=== PATIENT | female | born 1940 | race Caucasian/White ===

== ENCOUNTER → 2016-07-25 | Outpatient (REF) | payer MEDICARE ==
[2016-07-25 12:53] LABS: BASO % 0.8 % (0.0-1.0); EOS # 0.2 K/mm3 (0.0-0.50); EOS % 3.6 % (0.0-3.0); LARGE UNSTAINED CELL # 0.1 K/mm3 (0.0-0.4); LARGE UNSTAINED CELL % 1.9 % (0.0-4.0); LYMPH # 1.6 K/mm3 (1.5-4.5); LYMPH % 28.1 % (24.0-44.0); MEAN CORPUSCULAR HEMOGLOBIN 34.1 pg (27.0-33.0); MEAN CORPUSCULAR HGB CONC 35.1 g/dl (32.0-36.5); MEAN CORPUSCULAR VOLUME 97.3 fl (80.0-96.0); MONO # 0.3 K/mm3 (0.0-0.8); MONO % 5.3 % (0.0-5.0); NEUTROPHILS # 3.5 K/mm3 (1.8-7.7); NEUTROPHILS % 60.3 % (36.0-66.0); PLATELET COUNT, AUTOMATED 183 k/mm3 (150-450); RED CELL DISTRIBUTION WIDTH 12.1 % (11.5-14.5); WHITE BLOOD COUNT 5.8 K/mm3 (4.0-10.0)
[2016-07-25 13:05] LABS: ALBUMIN/GLOBULIN RATIO 1.54 (1.00-1.93); BILIRUBIN,TOTAL 0.8 MG/DL (0.2-1.0); CALCIUM LEVEL 8.8 MG/DL (8.8-10.2); CREATININE FOR GFR 0.97 MG/DL (0.55-1.02); GLOMERULAR FILTRATION RATE 59.3 (>39); POTASSIUM SERUM 3.8 MEQ/L (3.5-5.1); TOTAL PROTEIN 6.6 GM/DL (6.4-8.2)
== END ==
LOC: M SFHCADAM 08:04
PROVIDERS: ATTEND Physician Assistant Medical
DX: E78.4 Other hyperlipidemia (principal); F34.1 Dysthymic disorder

== ENCOUNTER → 2016-08-29 | Outpatient (REF) | payer MEDICARE ==
[2016-08-29 20:07] LABS: BASO % 0.4 % (0.0-1.0); EOS # 0.2 K/mm3 (0.0-0.50); LARGE UNSTAINED CELL # 0.1 K/mm3 (0.0-0.4); LARGE UNSTAINED CELL % 1.5 % (0.0-4.0); LYMPH # 1.5 K/mm3 (1.5-4.5); LYMPH % 22.8 % (24.0-44.0); MEAN CORPUSCULAR HEMOGLOBIN 35.2 pg (27.0-33.0); MEAN CORPUSCULAR VOLUME 97.8 fl (80.0-96.0); MONO # 0.3 K/mm3 (0.0-0.8); MONO % 4.4 % (0.0-5.0); NEUTROPHILS # 4.3 K/mm3 (1.8-7.7); NEUTROPHILS % 67.9 % (36.0-66.0); PLATELET COUNT, AUTOMATED 200 k/mm3 (150-450); RED CELL DISTRIBUTION WIDTH 12.4 % (11.5-14.5); WHITE BLOOD COUNT 6.3 K/mm3 (4.0-10.0)
[2016-08-29 20:25] LABS: ALBUMIN 4.2 GM/DL (3.2-5.2); ALBUMIN/GLOBULIN RATIO 1.56 (1.00-1.93); BILIRUBIN,TOTAL 0.5 MG/DL (0.2-1.0); CALCIUM LEVEL 9.6 MG/DL (8.8-10.2); CREATININE FOR GFR 0.99 MG/DL (0.55-1.02); FREE T4 1.05 NG/DL (0.76-1.46); GLOMERULAR FILTRATION RATE 57.9 (>39); POTASSIUM SERUM 4.3 MEQ/L (3.5-5.1); TOTAL PROTEIN 6.9 GM/DL (6.4-8.2)
== END ==
LOC: M SFHCADAM 13:32
PROVIDERS: ATTEND Physician Assistant Medical
DX: R41.0 Disorientation, unspecified (principal)

== ENCOUNTER → 2016-09-02 | Outpatient (CLI) | payer MEDICARE ==
--- NOTE | 2016-09-02 07:44 | REP ---
Clinical: Delirium. Comparison: 01/19/2009. Findings: Age-related atrophy, periventricular leukomalacia and microvascular ischemic changes are appreciated. The ventricles and sulci are symmetric. Melendez-white differentiation is maintained. There is no evidence for acute intracranial hemorrhage, mass/mass effect, pathology or infarction. No extra-axial fluid collection. Calvarium is intact. Paranasal sinuses and mastoid air cells are clear. Impression: Age related atrophy and microvascular ischemic changes. No acute intracranial hemorrhage, infarction, or mass/mass effect. Signed by Sammy Potts MD 09/02/2016 07:35 A
[2016-09-02 08:08] LABS: MEAN CORPUSCULAR HEMOGLOBIN 34.6 pg (27.0-33.0); MEAN CORPUSCULAR HGB CONC 34.9 g/dl (32.0-36.5); MEAN CORPUSCULAR VOLUME 99.1 fl (80.0-96.0); RED CELL DISTRIBUTION WIDTH 12.4 % (11.5-14.5); WHITE BLOOD COUNT 5.7 K/mm3 (4.0-10.0)
[2016-09-02 08:22] LABS: ALKALINE PHOSPHATASE 71 U/L (45-117); ALT/SGPT 20 U/L (12-78); ANION GAP 7 MEQ/L (8-16); AST/SGOT 20 U/L (15-37); BILIRUBIN,TOTAL 0.6 MG/DL (0.2-1.0); BLOOD UREA NITROGEN 16 MG/DL (7-18); CARBON DIOXIDE LEVEL 28 MEQ/L (21-32); CHLORIDE LEVEL 110 MEQ/L (98-107); CREATININE FOR GFR 1.02 MG/DL (0.55-1.02); GLOMERULAR FILTRATION RATE 55.9 (>39); GLUCOSE, FASTING 91 MG/DL (83-110); POTASSIUM SERUM 4.2 MEQ/L (3.5-5.1); SODIUM LEVEL 145 MEQ/L (136-145); TOTAL PROTEIN 6.5 GM/DL (6.4-8.2)
== END ==
LOC: M LAB 06:50 → M RAD 06:50
PROVIDERS: ATTEND Physician Assistant Medical
DX: R41.0 Disorientation, unspecified (principal)

== ENCOUNTER → 2016-09-09 | Outpatient (REF) | payer MEDICARE | LOC: M SFHCADAM 14:06 | PROVIDERS: ATTEND Physician Assistant Medical | DX: R41.0 Disorientation, unspecified (principal) ==

== ENCOUNTER → 2016-09-16 | Outpatient (CLI) | payer MEDICARE ==
--- NOTE | 2016-09-16 09:48 | REP ---
Clinical: Hemochromatosis and right upper quadrant pain. Technique: Real time garcia scale ultrasound examination using curved array transducer. Findings: The liver is mildly increased in echogenicity suggesting fatty infiltration and/or hepatocellular disease without focal hepatic lesion identified. Limited evaluation the pancreas is unremarkable. The gallbladder demonstrates a 3.6 mm presumed polyp along the posterior wall without evidence for cholelithiasis, wall thickening or pericholecystic fluid. No biliary ductal dilatation is appreciated and the common bile duct measures 3.9 mm diameter. Right kidney demonstrates renovascular calcifications with increased central sinus fat and cortical thinning suggesting chronic medical renal disease. There is no hydronephrosis, obvious nephrolithiasis, cystic or mass lesion and the right kidney measures 10.1 x 5.4 x 4.1 cm. No ascites. Impression: 1. Mild fatty infiltration and/or hepatocellular disease to the liver without focal hepatic lesion. 2. 3.6 mm gallbladder polyp suggested. 3. Evidence to suggest chronic medical renal disease. Signed by Sammy Potts MD 09/16/2016 09:39 A
== END ==
LOC: M RAD 08:25
PROVIDERS: ATTEND Physician Assistant Medical
DX: R10.11 Right upper quadrant pain (principal); E83.119 Hemochromatosis, unspecified

== ENCOUNTER 2016-09-25 09:46 | Observation (INO) | payer MEDICARE ==
[~2016-09-25] VITALS: Ht 160 cm; Wt 78.9 kg
[2016-09-25] MEDS ORDERED: SERT50TA (10:02)
[2016-09-25] MEDS ORDERED: CONS10SO3 (10:02)
[2016-09-25 10:40] LABS: BASO % 0.9 % (0.0-1.0); EOS # 0.2 K/mm3 (0.0-0.50); EOS % 3.4 % (0.0-3.0); LARGE UNSTAINED CELL # 0.1 K/mm3 (0.0-0.4); LARGE UNSTAINED CELL % 2.3 % (0.0-4.0); LYMPH # 1.6 K/mm3 (1.5-4.5); LYMPH % 29.1 % (24.0-44.0); MEAN CORPUSCULAR HEMOGLOBIN 34.6 pg (27.0-33.0); MEAN CORPUSCULAR HGB CONC 34.7 g/dl (32.0-36.5); MONO # 0.3 K/mm3 (0.0-0.8); MONO % 5.4 % (0.0-5.0); NEUTROPHILS # 3.1 K/mm3 (1.8-7.7); NEUTROPHILS % 58.8 % (36.0-66.0); PLATELET COUNT, AUTOMATED 193 k/mm3 (150-450); RED CELL DISTRIBUTION WIDTH 12.6 % (11.5-14.5); WHITE BLOOD COUNT 5.2 K/mm3 (4.0-10.0)
[2016-09-25 10:46] LABS: VENOUS BASE EXCESS -4.1 (-2.0-2.0); VENOUS O2 SATURATION 87.1 % (60.0-80.0); VENOUS PARTIAL PRESSURE CO2 30.2 mmHg (38.0-50.0); VENOUS PARTIAL PRESSURE O2 48.8 mmHg (30.0-50.0); VENOUS STANDARD HCO3 20.8 MEQ/L; VENOUS TOTAL CO2 19.9 MEQ/L (24.0-28.0)
[2016-09-25 10:51] LABS: ALBUMIN 4.1 GM/DL (3.2-5.2); ALBUMIN/GLOBULIN RATIO 1.37 (1.00-1.93); ALKALINE PHOSPHATASE 79 U/L (45-117); ALT/SGPT 30 U/L (12-78); ANION GAP 6 MEQ/L (8-16); AST/SGOT 30 U/L (15-37); BILIRUBIN,DIRECT 0.1 MG/DL (0.0-0.2); BILIRUBIN,TOTAL 0.5 MG/DL (0.2-1.0); BLOOD UREA NITROGEN 10 MG/DL (7-18); CALCIUM LEVEL 9.3 MG/DL (8.8-10.2); CARBON DIOXIDE LEVEL 28 MEQ/L (21-32); CHLORIDE LEVEL 107 MEQ/L (98-107); CREATININE FOR GFR 0.94 MG/DL (0.55-1.02); GLOMERULAR FILTRATION RATE > 60.0 (>39); GLUCOSE, FASTING 98 MG/DL (83-110); POTASSIUM SERUM 3.6 MEQ/L (3.5-5.1); SODIUM LEVEL 141 MEQ/L (136-145); TOTAL PROTEIN 7.1 GM/DL (6.4-8.2)
[2016-09-25 11:04] LABS: INR 0.92
[2016-09-25] MEDS ORDERED: ONDANSETRON 4MG/2ML VIAL (J2405) IV PRN (16:45)
[2016-09-25] MEDS ORDERED: LACT10SO29 PO (16:59)
[2016-09-25] MEDS ORDERED: SERT50TA PO (16:59)
[2016-09-25] MEDS ORDERED: DRIS50002 PO (16:59)
[2016-09-25 17:45] VITALS: BP 136/65
[2016-09-25 18:05] LABS: MAGNESIUM LEVEL 2.4 MG/DL (1.8-2.4)
[2016-09-25] MEDS ORDERED: ACETAMINOPHEN TAB 650MG DOSE (2X325MG) PO PRN (21:30)
--- NOTE | 2016-09-25 21:45 | ECGEPIP ---
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
[2016-09-25 22:00] VITALS: BP 137/65
[2016-09-25] MEDS: HEPARIN SOD (PORCINE) 5000 UNITS/ML VIAL SC SCH (22:18)
[2016-09-26 02:14] LABS: METHADONE URINE NEGATIVE (NEGATIVE)
[2016-09-26] MEDS: HEPARIN SOD (PORCINE) 5000 UNITS/ML VIAL SC SCH ×2 (05:32→15:25)
[2016-09-26 06:00] VITALS: BP 128/70
[2016-09-26 06:47] LABS: EOS # 0.2 K/mm3 (0.0-0.50); LARGE UNSTAINED CELL # 0.1 K/mm3 (0.0-0.4); LYMPH # 1.9 K/mm3 (1.5-4.5); LYMPH % 35.1 % (24.0-44.0); MEAN CORPUSCULAR HEMOGLOBIN 34.5 pg (27.0-33.0); MEAN CORPUSCULAR HGB CONC 34.8 g/dl (32.0-36.5); MONO # 0.3 K/mm3 (0.0-0.8); MONO % 6.7 % (0.0-5.0); NEUTROPHILS # 2.6 K/mm3 (1.8-7.7); NEUTROPHILS % 51.2 % (36.0-66.0); PLATELET COUNT, AUTOMATED 157 k/mm3 (150-450); RED CELL DISTRIBUTION WIDTH 12.5 % (11.5-14.5); WHITE BLOOD COUNT 5.1 K/mm3 (4.0-10.0)
[2016-09-26 07:08] LABS: ANION GAP 5 MEQ/L (8-16); BLOOD UREA NITROGEN 9 MG/DL (7-18); CALCIUM LEVEL 8.6 MG/DL (8.8-10.2); CARBON DIOXIDE LEVEL 27 MEQ/L (21-32); CHLORIDE LEVEL 112 MEQ/L (98-107); CREATININE FOR GFR 0.85 MG/DL (0.55-1.02); GLOMERULAR FILTRATION RATE > 60.0 (>39); GLUCOSE, FASTING 93 MG/DL (83-110); POTASSIUM SERUM 3.9 MEQ/L (3.5-5.1); SODIUM LEVEL 144 MEQ/L (136-145)
[2016-09-26] MEDS ORDERED: SERTRALINE HCL 50 MG TAB PO SCH ×2 (09:00)
--- NOTE | 2016-09-26 09:35 | REP ---
CT HEAD WITHOUT CONTRAST: HISTORY: Memory loss. COMPARISON: 09/02/2016 Areas of decreased attenuation are present in the periventricular white matter. This represents small vessel ischemic disease. There is no intraparenchymal hemorrhage, mass, or midline shift. Calcifications are present in the basal ganglia and cerebellum. The ventricular system and cortical sulci are dilated consistent with mild volume loss. There is no extracerebral collection. The visualized sinuses are clear. IMPRESSION: 1. Small vessel ischemic disease. 2. Mild volume loss. Signed by Ángel Nicholas MD 09/26/2016 09:36 A
[2016-09-26] MEDS: LACTULOSE 20 GM/30 ML SYRUP UD PO SCH ×2 (10:32→15:25)
--- NOTE | 2016-09-26 10:57 | IPNPDOC ---
Subjective Date Seen The patient was seen on 09/26/16. Subjective Chief Complaint/HPI The patient is a 76-year-old female admitted with a reason for visit of AMS. Events since last encounter Pt this morning tells me that she is feeling really pretty good. States that she knows she is in the hospital bc she has been seeing things and people at her home. She states that she hasn't seen anyone since she has been here. She does however tell nursing that she believes her daughter is standing outside her door now and keeping her here. She has had progressively worsening symptoms of paranoia, delusions, and hallucinations over the last few weeks. I have seen her in the office for this where she had an elevated ammonia work up other evaluatios were normal. She was started on lactulose but was not compliant with this while her dgt was away traveling. Since her dgt has been back the pt has been more compliant but her symptoms have not improved. She has torn her house apart looking for things, then doesn't recall that she has caused the mess, and states that someone has been breaking into her home going through her belongings. She has been adament that she has seen a woman going thru her belongings. Her dgt has been through the home, she confirms that there is no sign of a break in, there is no money missing from accounts has been confirmed as well as the patient has been adament that this women (who she has never named) is stealing from her. General: Denies: Fatigue Constitutional: Denies: Chills, Fever ENT: Denies: Head Aches Pulmonary: Denies: Cough, Dyspnea Cardiovascular: Denies: Chest Pain, Palpitations Gastrointestinal: Denies: Diarrhea, Nausea, Vomiting Psych: Reports: Memory Issues, Other Psych (See above) Objective Physical Examination General Exam: Positive: Alert, No Acute Distress ENT Exam: Positive: Mucous membr. moist/pink Chest Exam: Positive: Clear to auscultation Heart Exam: Positive: Normal S1, Normal S2, Rate Normal Abdomen Exam: Positive: Normal bowel sounds, Soft, Negative: Tenderness Extremity Exam: Negative: Edema Psych Exam: Positive: Oriented x 3 (Pt recognizes me, she knows where she is, why, the year, who she is, she knows that today is her birthday. ) Assessment /Plan Problems (1) Paranoid behavior Status: Acute Problem Specific Plan: Consult Specialist, Monitor Clinically Problem Text: Pt appears to be medically stable, she has had a nl CT head, nl Ammonia, labs also otherwise benign. She continues to demonstrate paranoid behavior. She also has had hallucinations. I have spoken with Dr Montana from Psych who plans to see the pt. She is medically cleared fro transfer to [facility] if deemed appropriate by Psychiatry. (2) Hallucinations Status: Acute Problem Text: See above. (3) Altered mental status Status: Acute Response to Treatment: Stable Problem Text: See above. Plan/VTE VTE Prophylaxis Ordered?: Yes VS, I&O, 24H, Fishbone Vital Signs/I&O Vital Signs Date Time Temp Pulse Resp B/P Pulse Ox O2 Delivery O2 Flow Rate FiO2 09/26/16 06:00 98.4 59 18 128/70 94 Room Air I&O- Last 24 Hours up to 6 AM 09/26/16 06:00 Intake Total 960 ml Output Total 1100 ml Balance -140 ml Laboratory Data 24H LABS Laboratory Tests 2 09/25/16 23:54: Urine Amorphous Sediment , Urine Amphetamines Screen NEGATIVE, Urine Benzodiazepines Screen NEGATIVE, Urine Opiates Screen NEGATIVE, Urine Appearance CLEAR, Urine Color COLORLESS, Urine pH 7.0, Urine Specific Butler 1.003, Urine Protein NEGATIVE, Urine Glucose (UA) NEGATIVE, Urine Ketones NEGATIVE, Urine Urobilinogen 0.2, Urine Bilirubin NEGATIVE, Urine Leukocyte Esterase NEGATIVE, Urine Bacteria (Auto) NEGATIVE, Urine Barbiturates Screen NEGATIVE, Urine Blood 1+H, Urine Calcium Carbonate Cryst(Auto) , Urine Calcium Oxalate Cryst (Auto) , Urine Calcium Phosphate Mariya (Auto) , Urine Cannabinoids Screen NEGATIVE, Urine Cellular Casts , Urine Cocaine Metabolite Screen NEGATIVE , Urine Cystine Crystals , Urine Granular Casts (Auto) , Urine Hyaline Casts ( Auto) 0, Urine Leucine Crystals , Urine Methadone Screen NEGATIVE, Urine Mucus ( Auto) , Urine Nitrite NEGATIVE, Urine Oval Fat Bodies (Auto) , Urine Phencyclidine Screen NEGATIVE, Urine RBC (Auto) 8H, Urine Renal Epithelial Cells , Urine Sperm (Auto) , Urine Squamous Epithelial Cells 1, Urine Transitional Epithelial Cells , Urine Trichomonas (Auto) , Urine Triple Phosphate Cryst (Auto) , Urine Tyrosine Crystals , Urine Uric Acid Crystals ( Auto) , Urine WBC (Auto) 1, Urine Waxy Casts (Auto) , Urine Yeast-Like Cells ( Auto) 09/26/16 06:18: Ammonia < 10, Anion Gap 5L, White Blood Count 5.1, Red Blood Count 4.38, Hemoglobin 15.1, Hematocrit 43.3, Mean Corpuscular Volume 99.0H, Mean Corpuscular Hemoglobin 34.5H, Mean Corpuscular Hemoglobin Concent 34.8, Red Cell Distribution Width 12.5, Platelet Count 157, Neutrophils (%) (Auto) 51.2, Lymphocytes (%) (Auto) 35.1, Monocytes (%) (Auto) 6.7H, Eosinophils (%) (Auto) 4.0H, Basophils (%) (Auto) 1.0, Neutrophils # (Auto) 2.6, Lymphocytes # (Auto) 1.9, Monocytes # (Auto) 0.3, Eosinophils # (Auto) 0.2, Basophils # (Auto) 0.0, Blood Urea Nitrogen 9, Creatinine 0.85, Sodium Level 144, Potassium Level 3.9, Chloride Level 112H, Carbon Dioxide Level 27, Calcium Level 8.6L, Glomerular Filtration Rate > 60.0, Large Unclassified Cells # 0.1, Large Unclassified Cells % 2.0 CBC/BMP Laboratory Tests 09/26/16 06:18 Calcium Level 8.6 L, Red Blood Count 4.38, Mean Corpuscular Volume 99.0 H, Mean Corpuscular Hemoglobin 34.5 H, Mean Corpuscular Hemoglobin Concent 34.8, Red Cell Distribution Width 12.5, Neutrophils (%) (Auto) 51.2, Lymphocytes (%) (Auto ) 35.1, Monocytes (%) (Auto) 6.7 H, Eosinophils (%) (Auto) 4.0 H, Basophils (%) (Auto) 1.0, Neutrophils # (Auto) 2.6, Lymphocytes # (Auto) 1.9, Monocytes # ( Auto) 0.3, Eosinophils # (Auto) 0.2, Basophils # (Auto) 0.0 Microbiology Microbiology 09/25/16 Urine Culture, Received Pending LINDA AZEVEDO PA-C Sep 26, 2016 10:57
--- NOTE | 2016-09-26 10:57 | HPE ---
DATE OF ADMISSION: 09/25/2016 PRIMARY CARE PROVIDER: Dr. Washington Sawyer, [facility]. CHIEF COMPLAINT: Confusion, hallucinations. HISTORY OF PRESENT ILLNESS: 75-year-old female with a history of hemachromatosis, depression, vitamin D deficiency on chronic Lactulose due to chronically elevated ammonia levels, who presented to the emergency room brought in by her daughter with complaints of hallucinations and paranoia. According to the patient, her daughter was concerned about her due to hallucinations. The patient was in her usual state of health until she had two concussions in 2016 due to head trauma. Since then, the patient has been much more forgetful with recent memory loss, difficulty with recent memory. She often forgets where she leaves her car keys and has been slightly paranoid thinking that someone is coming in at night and stealing her things, like her silverware. "They said I am hallucinating." According to the patient, she thought that someone was coming in and stealing things from her, for example her silverware that is usually in the aligning checker the dining room. After a few days, she would find it in the usual place. The patient sometimes hears noises and rattling down the stairs prompting her to come down the stairs and investigate. She feels that at times she sees shadows and noises. The patient also complains that sometimes she finds clothes in a different drawer than where she normally puts it and at times she leaves her brush on top of the dresser and would not find it there but it would turn up in a day or two. Due to these changes, the daughter has been increasingly concerned. She was brought into the emergency room for further evaluation. Ammonia level and arterial blood gas were within normal limits. CBC and metabolic panel and CT of the head done on 08/23/2016, were unremarkable. Hospitalist service was called for evaluation and overnight admission to rule out other metabolic issues. PAST MEDICAL HISTORY: 1. Concussion times two. 2. Per the patient, hemachromatosis. 3. Depression. 4. Vitamin D deficiency. 5. Hyperlipidemia. 6. Hemorrhoids. 7. Osteoarthritis of the hips and knees. 8. Depression. 9. Anxiety. 10. Insomnia. 11. Abnormal EKG with left axis deviation. 12. MGUS, follows with hematology. ALLERGIES: No known drug allergies. SURGICAL HISTORY: 1. Hysterectomy in 1975. 2. Bladder suspension in 1975. 3. Colonoscopy 15 years ago. 4. Lens implants. 5. Bilateral cataract surgery in 2010. HOME MEDICATIONS: - Lactulose 10 grams per 15 mL three times a day - sertraline 50 mg daily - vitamin D 50,000 units weekly FAMILY HISTORY: Father at age 70 with coronary artery disease and myocardial infarction. Mother at age 74 with brain cancer. Siblings - - Sister had hypertension. Brother of brain aneurysm at age 73, another brother in his 40s. SOCIAL HISTORY: Lives at home with a 95-year-old friend. Daughter, Edwina Mendez, healthcare proxy, phone number [phone]. REVIEW OF SYSTEMS: 12-point system negative aside from positive findings in history of present illness. PHYSICAL EXAMINATION: Blood pressure 131/60, temperature 97.2, pulse 50, respiratory rate 16, 96% oxygen saturation. GENERAL: Awake, alert, and oriented to person, place and time. She is able to state Crystalsa Fabiola Macario, date of 1940. She stated that she is at [facility] in [place], [place]. Able to state that it is 09/25/2016. She has no focal abnormalities neurologically. Motor function is 5/5. Gait was not tested. No facial asymmetry. Tongue is midline. No sensory disturbance. Pupils are equal, round, and reactive. No dysmetria on finger to nose testing. No pronator drift. Tongue is midline. Speech is fluent. LUNGS: Clear to auscultation. No wheezes, rales or rhonchi. HEART: S1, S2. Sinus rhythm. ABDOMEN: Soft, nontender, nondistended. EXTREMITIES: No cyanosis or clubbing. No pitting edema. LABORATORY DATA: White count 5.3, hemoglobin 16, hematocrit 46, platelet count 193. Sodium 141, potassium 3.6, chloride 107, bicarbonate 28, BUN 10, creatinine 0.94, glucose 98. Ammonia level of 18. Arterial blood gas: Venous gas 7.4, CO2 of 30. UA and urine culture and sensitivity pending. IMAGING STUDIES: CT of the head pending. CT of the head on 08/23/2016 showed no acute intracranial hemorrhage, infarct, mass or mass effect. Age related atrophy, microvascular ischemic changes. ASSESSMENT AND PLAN: This is a 75-year-old female with a history of hemachromatosis, vitamin D deficiency, monoclonal gammopathy of unknown significance, vitamin D deficiency, depression, who was brought in by her daughter due to worsening memory loss and paranoia with hallucinations. The patient will be admitted for observation. Assigned to Dr. Washington Sawyer, [facility]. CURRENT ISSUES: 1. Altered mental status. Current metabolic workup is negative. We will check UA and urine culture and sensitivity to rule out infection. Obtain CT of the head without contrast. Defer to Dr. Sawyer for psychiatric referral if negative medical workup, may have underlying dementia, may benefit from neuropsychiatric testing as an outpatient. 2. Hemachromatosis. Ammonia level is stable. May resume home dose of Lactulose. 3. Vitamin D deficiency. Outpatient followup with continued vitamin D. 4. Depression. Continue sertraline. DISPOSITION: Per Dr. Sawyer. [facility]
[2016-09-26 14:00] VITALS: BP 139/81
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
== END 2016-09-26 20:07 ==
LOC: M ED 10:48 → M ED INP 16:33 → M MSPAV 17:13
PROVIDERS: ADMIT General Practice; ATTEND Family Medicine
DX: R41.82 Altered mental status, unspecified (principal); F22 Delusional disorders; F29 Unspecified psychosis not due to a substance or known physiological condition; E83.119 Hemochromatosis, unspecified; E55.9 Vitamin D deficiency, unspecified; F32.9 Major depressive disorder, single episode, unspecified; F43.10 Post-traumatic stress disorder, unspecified; F41.9 Anxiety disorder, unspecified; E78.4 Other hyperlipidemia; I10 Essential (primary) hypertension; Z87.820 Personal history of traumatic brain injury

== ENCOUNTER 2016-09-26 20:10 | Inpatient (IN) | payer MEDICARE ==
[~2016-09-26] VITALS: Ht 160 cm; Wt 79.1 kg
[~2016-09-26 20:10] MED LIST: CONS10SO3; DRIS50002 PO; LACT10SO29 PO; SERT50TA; SERT50TA PO
[2016-09-26 20:35] VITALS: BP 146/73
[2016-09-26] MEDS ORDERED: LORazepam 0.5 MG TAB PO PRN (21:30)
[2016-09-26] MEDS ORDERED: MAALOX 30 ML SUSP *UDC PO PRN (21:30)
[2016-09-26] MEDS ORDERED: traZODone 50 MG TAB PO PRN (21:30)
[2016-09-26] MEDS ORDERED: ACETAMINOPHEN TAB 650MG DOSE (2X325MG) PO PRN (21:30)
[2016-09-26] MEDS ORDERED: MOM 30ML SUSPENSION UDC PO PRN (21:30)
[2016-09-27 06:13] VITALS: BP 138/65
[2016-09-27] MEDS ORDERED: SERTRALINE HCL 50 MG TAB PO SCH (09:00)
--- NOTE | 2016-09-27 10:11 | HPEPDOC ---
Medical History and Physical Date of Admission Sep 26, 2016 at 20:10 History and Physical PCP: Mona HIGHTOWER ATTENDING: Dr. Sebastián Knox HPI: 75yoF admitted to [facility] for unspecified psychosis, being medically examined today. No acute medical complaints today. Denies any fevers, chills, weakness, fatigue, [place], CP, SOB, cough, palpitations, abdominal pain, N/V/D or changes in bowel or bladder habits. 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 Brother brain aneurysm, another brother in his 40s. Children: Alive, well Unexpected deaths due to medical reasons: None. ROS: As noted in HPI, otherwise 11pt ROS of systems reviewed and unremarkable. PE: GEN: 76yoF, appears stated age. Well-nourished, well developed. No acute distress. Alert and oriented x 3. Pleasant, interactive. HEENT: Normocephalic, atraumatic. Pupils are equal, round, and reactive to light. Extraocular movements are intact. No nystagmus appreciated. Sclera are nonicteric. Conjunctiva without injection. Nose midline. Nasal turbinates without bogginess. EACs both patent BL. TMs both visualized and garcia with good cone of light, no bulging or erythema. No facial asymmetry. Moist mucous membranes. Dentition fair. Pharynx pink and moist, no cobblestoning. Neck supple , trachea midline. No lymphadenopathy or thyromegaly appreciated. CHEST: Regular rate and rhythm, +S1, +S2 LUNGS: Clear to auscultation bilaterally. No wheezes, rales, or rhonchi. Breathing appears symmetric and easy. Patient is speaking in full sentences. No accessory muscle use. ABD: Round, soft, non-tender, non-distended. +Bowel sounds throughout. No rebound or guarding. No costovertebral angle tenderness. EXT: Pulses 2+ bilaterally dorsalis pedis and radial. No lower extremity edema appreciated. SKIN: [place], dry, warm. Capillary refill <2sec. No rashes. NEURO: Alert and oriented x 3. Cranial nerves III-XII are intact. No focal deficits appreciated. EK09/25/16 SINUS BRADYCARDIA WITH OCCASIONAL SUPRAVENTRICULAR PREMATURE COMPLEXES INFERIOR MYOCARDIAL INFARCTION, PROBABLY OLD DECREASED RATE 09/20/15. UC neg 09/25/16 CT head 09/26/16 1. Small vessel ischemic disease. 2. Mild volume loss. Liver U/S 09/16/16 1. Mild fatty infiltration and/or hepatocellular disease to the liver without focal hepatic lesion. 2. 3.6 mm gallbladder polyp suggested. 3. Evidence to suggest chronic medical renal disease A&P: 75yoF admitted to [facility] for unspecified psychosis 1. Psych. Plan per Psychiatry. EKG on file. Add RPR, Vitamin B12, folate. 2. Possible underlying dementia. Plan for outpatient neuropsychiatric evaluation. 3. Borderline EKG. No cardiac signs or symptoms appreciated on exam, follow with PCP. 4. Follow up with PCP on discharge. 5. Vitamin D deficiency. Continue supplement. 6. History of hemachromatosis. Continue lactulose 15 mL 3 times a day. Ammonia level less than 10 09/26/16. Liver ultrasound completed 09/16/16. Pt was seen by PCP 09/09/16. Per note, has outpt f/u 10/[address] Johnson. Will confirm appt. 7. Staff member present throughout exam, Smita Dunn RN. Vital Signs Vital Signs Date Time Temp Pulse Resp B/P Pulse Ox O2 Delivery O2 Flow Rate FiO2 09/27/16 06:13 96.6 48 18 138/65 Laboratory Data Labs 24H Item Value Date Time White Blood Count 5.1 K/mm3 09/26/16617 Red Blood Count 4.38 M/mm3 09/26/16617 Hemoglobin 15.1 g/dl 09/26/16617 Hematocrit 43.3 % 09/26/16617 Mean Corpuscular Volume 99.0 fl H 09/26/16617 Mean Corpuscular Hemoglobin 34.5 pg H 4/6/17 0618 Mean Corpuscular Hemoglobin Concent 34.8 g/dl 09/26/1618 Red Cell Distribution Width 12.5 % 09/26/16 0618 Platelet Count 157 k/mm3 09/26/16 0618 Sodium Level 144 MEQ/L 09/26/1618 Potassium Level 3.9 MEQ/L 09/26/16 0618 Chloride Level 112 MEQ/L H 09/26/16 0618 Carbon Dioxide Level 27 MEQ/L 09/26/16 0618 Anion Gap 5 MEQ/L L 09/26/16 0618 Blood Urea Nitrogen 9 MG/DL 09/26/16 0618 Creatinine 0.85 MG/DL 09/26/16617 Glomerular Filtration Rate > 60.0 09/26/1618 Fasting Glucose 93 MG/DL 09/26/16 0618 Calcium Level 8.6 MG/DL L 09/26/1618 Thyroid Stimulating Hormone (TSH) 3.120 uIU/ML 09/25/16 1006 Ammonia < 10 uMOL/L 09/26/16 0618 Home Medications Scheduled Lactulose (Lactulose) 10 Gm/15 Ml Magdalena 15 ML PO TID Sertraline Hcl (Sertraline HCl) 50 Mg Tab 50 MG PO DAILY Vitamin D (Drisdol) 50,000 Unit Cap 50,000 UNIT PO QWEEK USUALLY TAKES MID WEEK WHEN SHE REMEMBERS. IS ALL OUT. Allergies Coded Allergies: No Known Allergies (Unverified , 09/25/16) Ruby Chahal Sep 27, 2016 10:11
[2016-09-27] MEDS: LACTULOSE 20 GM/30 ML SYRUP UD PO SCH ×3 (10:48→21:41)
[2016-09-27 11:40] LABS: FOLATE 11.2 NG/ML (>5.4); VITAMIN B12 LEVEL 327 PG/ML (247-911)
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
[2016-09-27 18:00] VITALS: BP 103/60
[2016-09-28 06:54] VITALS: BP 120/72
[2016-09-28] MEDS: SERTRALINE 100 MG TAB PO SCH (08:55)
[2016-09-28] MEDS: LACTULOSE 20 GM/30 ML SYRUP UD PO SCH ×3 (08:55→21:36)
[2016-09-28 18:00] VITALS: BP 100/58
--- NOTE | 2016-09-29 04:13 | IPN ---
DATE OF SERVICE: 09/28/2016 The patient today states "I'm doing good." She says she slept good. She has no complaints. I am not eliciting any mood symptoms. MENTAL STATUS EXAMINATION: She is alert. She is pleasant and cooperative, verbally spontaneous. Eye contact is good. There is no formal thought disorder noted. She says her mood is good. Her affect is full range and appropriate. She is not psychotic, suicidal, homicidal. Concentration is fair. Memory is intact. Insight and judgment is fair. DIAGNOSIS: Major depressive disorder, recurrent, severe, without psychotic symptoms. TREATMENT PLAN: At this point, the patient seems to be doing better. It seems that her mood seems to be stabilizing. We will continue to monitor her for continued stabilization of her mood and to titrate her medications as indicated.
[2016-09-29 06:29] VITALS: BP 148/66
[2016-09-29] MEDS: LACTULOSE 20 GM/30 ML SYRUP UD PO SCH ×3 (08:31→21:00)
[2016-09-29] MEDS: SERTRALINE 100 MG TAB PO SCH (08:31)
[2016-09-29 18:00] VITALS: BP 132/78
--- NOTE | 2016-09-30 06:22 | IPN ---
DATE: 09/29/2016 The patient today says, "I am doing good". She says she slept good. She has no complaints. ENTAL STATUS EXAMINATION: The patient is alert and oriented times three. She is pleasant and cooperative , verbally spontaneous. Eye contact is good. There is no formal thought disorder noted. She says her mood is good. Her affect is full range and appropriate. She is not psychotic, suicidal, homicidal. Concentration is fair. Memory is intact. Insight and judgment is fair. DIAGNOSIS: Major depressive disorder, recurrent, severe, without psychotic symptoms. TREATMENT PLAN: At this point, we will further observe and evaluate the patient for continued elevation and stabilization of her mood and continued resolution of suicidal ideations. LUCINDA
[2016-09-30 06:51] VITALS: BP 124/72
[2016-09-30] MEDS: LACTULOSE 20 GM/30 ML SYRUP UD PO SCH ×3 (08:11→21:35)
[2016-09-30] MEDS: SERTRALINE 100 MG TAB PO SCH (08:11)
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
[2016-09-30 18:00] VITALS: BP 127/73
[2016-10-01 06:39] VITALS: BP 122/83
[2016-10-01] MEDS ORDERED: SERT50TA PO (08:07)
[2016-10-01] MEDS: LACTULOSE 20 GM/30 ML SYRUP UD PO SCH (08:12)
[2016-10-01] MEDS: SERTRALINE 100 MG TAB PO SCH (08:12)
[2016-10-01] MEDS ORDERED: TRAZ50TA4 PO (09:08)
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
== END 2016-10-01 09:50 | disposition home or self-care (01) | DRG 885 ==
LOC: M PSY 20:10
PROVIDERS: ADMIT Psychiatry & Neurology Child & Adolescent Psychiatry; ATTEND Psychiatry & Neurology Child & Adolescent Psychiatry
DX: F33.1 Major depressive disorder, recurrent, moderate (principal); E83.119 Hemochromatosis, unspecified; E78.5 Hyperlipidemia, unspecified; F03.90 Unspecified dementia, unspecified severity, without behavioral disturbance, psychotic disturbance, mood disturbance, and anxiety; K64.8 Other hemorrhoids; D47.2 Monoclonal gammopathy; M17.0 Bilateral primary osteoarthritis of knee; M16.0 Bilateral primary osteoarthritis of hip; Z79.899 Other long term (current) drug therapy; Z62.810 Personal history of physical and sexual abuse in childhood

== ENCOUNTER → 2016-11-07 | Outpatient (REF) | payer MEDICARE ==
[~2016-11-07] MED LIST changes: +TRAZ50TA4 PO
[2016-11-07 14:11] LABS: BASO % 0.6 % (0.0-1.0); EOS # 0.2 K/mm3 (0.0-0.50); EOS % 2.5 % (0.0-3.0); LARGE UNSTAINED CELL # 0.1 K/mm3 (0.0-0.4); LARGE UNSTAINED CELL % 1.6 % (0.0-4.0); LYMPH # 1.3 K/mm3 (1.5-4.5); LYMPH % 19.5 % (24.0-44.0); MEAN CORPUSCULAR HEMOGLOBIN 35.3 pg (27.0-33.0); MEAN CORPUSCULAR HGB CONC 34.5 g/dl (32.0-36.5); MEAN CORPUSCULAR VOLUME 102.2 fl (80.0-96.0); MONO # 0.3 K/mm3 (0.0-0.8); MONO % 4.2 % (0.0-5.0); NEUTROPHILS # 4.9 K/mm3 (1.8-7.7); NEUTROPHILS % 71.6 % (36.0-66.0); PLATELET COUNT, AUTOMATED 188 k/mm3 (150-450); RED CELL DISTRIBUTION WIDTH 12.1 % (11.5-14.5); WHITE BLOOD COUNT 6.8 K/mm3 (4.0-10.0)
[2016-11-07 14:42] LABS: ALBUMIN/GLOBULIN RATIO 1.33 (1.00-1.93); ALKALINE PHOSPHATASE 71 U/L (45-117); ALT/SGPT 29 U/L (12-78); ANION GAP 4 MEQ/L (8-16); AST/SGOT 25 U/L (15-37); BILIRUBIN,TOTAL 0.6 MG/DL (0.2-1.0); BLOOD UREA NITROGEN 14 MG/DL (7-18); CALCIUM LEVEL 9.4 MG/DL (8.8-10.2); CARBON DIOXIDE LEVEL 32 MEQ/L (21-32); CHLORIDE LEVEL 108 MEQ/L (98-107); CREATININE FOR GFR 0.91 MG/DL (0.55-1.02); GLOMERULAR FILTRATION RATE > 60.0 (>39); GLUCOSE, FASTING 104 MG/DL (83-110); POTASSIUM SERUM 4.9 MEQ/L (3.5-5.1); SODIUM LEVEL 144 MEQ/L (136-145)
== END ==
LOC: M SFHCADAM 11:16
PROVIDERS: ATTEND Physician Assistant Medical
DX: F34.1 Dysthymic disorder (principal); E83.118 Other hemochromatosis; F22 Delusional disorders

== ENCOUNTER → 2016-11-13 | Outpatient (CLI) | payer MEDICARE ==
--- NOTE | 2016-11-13 09:04 | REP ---
Clinical: Right upper quadrant pain. Technique: Real time garcia scale ultrasound examination using curved array transducer. Findings: Liver and pancreas are normal in contour, size, echogenicity and overall appearance without focal hepatic or pancreatic lesions identified. Very minimal fatty infiltration to the liver cannot be excluded. The gallbladder demonstrates a presumed 4 mm polyp without further evidence for gallstones, wall thickening or pericholecystic fluid. Right upper quadrant pain was elicited with transducer pressure and is nonspecific. There is no evidence for biliary ductal dilatation and the common bile duct measures 4 mm diameter. Right kidney measures 8.2 x 4.5 x 3.7 cm with suggestions for chronic medical renal disease and no evidence for hydronephrosis. No ascites. Impression: 1. Right upper quadrant tenderness was elicited during examination. 2. Otherwise relatively normal examination with subtle findings as described above including benign gallbladder polyp, evidence for chronic medical renal disease, and mild fatty infiltration to the liver. Signed by Sammy Potts MD 11/13/2016 08:56 A
== END ==
LOC: M RAD 08:17
PROVIDERS: ATTEND Physician Assistant Medical
DX: K76.9 Liver disease, unspecified (principal)

== ENCOUNTER 2016-11-23 20:39 | Emergency (ER) | payer MEDICARE ==
[~2016-11-23] VITALS: Ht 160 cm; Wt 74.0 kg
[2016-11-23] MEDS ORDERED: MECL-68 PO (20:55)
[2016-11-23] MEDS ORDERED: QUET1TAB7 PO (20:55)
[2016-11-23 21:34] LABS: BASO # 0.1 K/mm3 (0.0-0.2); BASO % 0.8 % (0.0-1.0); EOS # 0.3 K/mm3 (0.0-0.50); EOS % 3.6 % (0.0-3.0); LARGE UNSTAINED CELL # 0.1 K/mm3 (0.0-0.4); LARGE UNSTAINED CELL % 1.3 % (0.0-4.0); LYMPH % 26.4 % (24.0-44.0); MEAN CORPUSCULAR HGB CONC 35.5 g/dl (32.0-36.5); MEAN CORPUSCULAR VOLUME 98.6 fl (80.0-96.0); MONO # 0.4 K/mm3 (0.0-0.8); NEUTROPHILS # 4.4 K/mm3 (1.8-7.7); NEUTROPHILS % 61.9 % (36.0-66.0); PLATELET COUNT, AUTOMATED 152 k/mm3 (150-450); RED CELL DISTRIBUTION WIDTH 12.5 % (11.5-14.5); WHITE BLOOD COUNT 7.1 K/mm3 (4.0-10.0)
[2016-11-23 21:51] LABS: ALBUMIN 3.9 GM/DL (3.2-5.2); ALBUMIN/GLOBULIN RATIO 1.56 (1.00-1.93); BILIRUBIN,DIRECT 0.2 MG/DL (0.0-0.2); BILIRUBIN,TOTAL 0.6 MG/DL (0.2-1.0); CALCIUM LEVEL 8.9 MG/DL (8.8-10.2); CREATININE FOR GFR 1.2 MG/DL (0.55-1.02); GLOMERULAR FILTRATION RATE 46.3 (>39); POTASSIUM SERUM 3.7 MEQ/L (3.5-5.1); TOTAL PROTEIN 6.4 GM/DL (6.4-8.2)
[2016-11-23 22:18] LABS: THYROXINE (T4) 7.6 UG/DL (4.5-12.0)
[2016-11-23 22:37] VITALS: BP 111/58
== END 2016-11-23 22:56 | disposition home or self-care (01) ==
LOC: M ED 21:29
DX: K74.60 Unspecified cirrhosis of liver (principal); E83.119 Hemochromatosis, unspecified

== ENCOUNTER → 2016-11-25 | Outpatient (REF) | payer MEDICARE ==
[~2016-11-25] MED LIST changes: +MECL-68 PO; +QUET1TAB7 PO
[2016-11-25 14:25] LABS: FERRITIN 55 NG/ML (8-252); PERCENT SATURATION 28.5 % (13.2-37.4); TOTAL IRON BINDING CAPACITY 284 UG/DL (250-450); TOTAL PROTEIN 6.6 GM/DL (6.4-8.2)
[2016-11-26 13:39] LABS: ALBUMIN 4.47 GM/DL (3.29-5.55); ALBUMIN % 67.7 % (55.8-66.1); GAMMA GLOBULIN % 9.4 % (11.1-18.8)
== END ==
LOC: M LAB REF 13:14
PROVIDERS: ATTEND Internal Medicine Medical Oncology
DX: E83.119 Hemochromatosis, unspecified (principal)

== ENCOUNTER → 2016-12-04 | Outpatient (REF) | payer MEDICARE | LOC: M LAB REF 12:43 | PROVIDERS: ATTEND Internal Medicine Medical Oncology | DX: E83.119 Hemochromatosis, unspecified (principal) ==

== ENCOUNTER 2017-01-01 20:41 | Emergency (ER) | payer MEDICARE ==
[~2017-01-01] VITALS: Ht 160 cm; Wt 77.2 kg
[~2017-01-01 20:41] MED LIST changes: +TRAZ50TA11 PO; -TRAZ50TA4 PO
[2017-01-01] MEDS ORDERED: OLAN5TAB PO (20:58)
[2017-01-01] MEDS ORDERED: DONETAB6 PO (20:58)
[2017-01-01] MEDS ORDERED: NORCO, ANEXSIA 5/325MG TABLET (HYDROcodone/ACETAMINOPHEN) PO ONE (22:00)
[2017-01-01] MEDS ORDERED: NAPR500T PO (23:21)
[2017-01-02 00:04] VITALS: BP 138/70
--- NOTE | 2017-01-02 04:58 | REP ---
Clinical: Trauma. Technique: AP, lateral, bilateral oblique and sunrise views. Findings: The osseous structures and joint spaces are intact and normal. There is no evidence for acute fracture or dislocation. No joint effusion is appreciated. Surrounding soft tissues are unremarkable. No subcutaneous emphysema or radiodense foreign body. Impression: No acute fracture or dislocation appreciated. Signed by Sammy Potts MD 01/02/2017 04:50 A
--- NOTE | 2017-01-02 05:01 | REP ---
Clinical: Trauma . Technique: AP, lateral, bilateral oblique, and coned-down views. Findings: No acute fracture. Age related osteopenia and moderate to advanced multilevel degenerative changes are appreciated. Findings are most pronounced at the L4-5 level where endplate sclerosis, disc space narrowing and hypertrophic facet changes are appreciated. Advanced chronic changes and L5-S1 include spondylolysis, endplate sclerosis, disc space narrowing, anterior osteophyte formation, and grade 1 anterolisthesis. Impression: 1. Advanced chronic spondylolysis with spondylolisthesis at L5-S1. 2. Advanced degenerative disc disease at the L4-5 level. 3. Moderate degenerative changes noted throughout the remainder of the visualized thoracolumbar spine. 4. No acute fracture / compression injury. Signed by Sammy Potts MD 01/02/2017 04:52 A
--- NOTE | 2017-01-02 05:02 | REP ---
Clinical: Trauma. Technique: Caudal angled, cephalic angled, and lateral views of the sacrum and coccyx. Findings: Sacrum is intact. No definite acute coccyx fracture although subtle angulation is noted but appears nonacute. Impression: No acute sacrococcygeal fracture or dislocation appreciated. Signed by Sammy Potts MD 01/02/2017 04:53 A
--- NOTE | 2017-01-02 05:03 | REP ---
Clinical: Trauma. Technique: Single frontal view of the pelvis with neutral and frog lateral views of the left hip. Findings: Age-related changes are appreciated throughout the pelvis and appears symmetric. Left hip demonstrates mild degenerative changes including increase sclerosis to the acetabular roof with minimal joint space narrowing. Impression: Mild age-related degenerative changes. No acute fracture dislocation. Signed by Sammy Potts MD 01/02/2017 04:55 A
--- NOTE | 2017-01-02 05:05 | REP ---
Clinical: Trauma. Fall. Technique: Internal rotation, external rotation, and Y view of the left shoulder. Findings: Chronic degenerative changes include cortical irregularity and spurring at the acromioclavicular joint as well as nonspecific age-related changes to the glenohumeral joint. No acute fracture dislocation. Subacromial space is relatively normal. Impression: Mild arthritic degenerative changes. Signed by Sammy Potts MD 01/02/2017 04:56 A
== END 2017-01-02 00:09 | disposition home or self-care (01) ==
LOC: EDBD 20:41 → M ED 20:41
DX: S40.012A Contusion of left shoulder, initial encounter (principal); W01.198A Fall on same level from slipping, tripping and stumbling with subsequent striking against other object, initial encounter; Y92.099 Unspecified place in other non-institutional residence as the place of occurrence of the external cause; Y93.01 Activity, walking, marching and hiking; Y99.9 Unspecified external cause status

== ENCOUNTER 2017-01-11 20:41 | Inpatient (IN) | payer MEDICARE, MEDICAID ==
[~2017-01-11] VITALS: Ht 162.6 cm; Wt 78.5 kg
[~2017-01-11 20:41] MED LIST changes: +DONETAB6 PO; +NAPR500T PO; +OLAN5TAB PO
[2017-01-11 21:55] LABS: BASO % 0.9 % (0.0-1.0); EOS # 0.3 K/mm3 (0.0-0.50); LARGE UNSTAINED CELL # 0.2 K/mm3 (0.0-0.4); LARGE UNSTAINED CELL % 2.6 % (0.0-4.0); LYMPH # 1.8 K/mm3 (1.5-4.5); LYMPH % 30.2 % (24.0-44.0); MEAN CORPUSCULAR HEMOGLOBIN 35.2 pg (27.0-33.0); MEAN CORPUSCULAR HGB CONC 36.1 g/dl (32.0-36.5); MEAN CORPUSCULAR VOLUME 97.6 fl (80.0-96.0); MONO # 0.4 K/mm3 (0.0-0.8); MONO % 6.5 % (0.0-5.0); NEUTROPHILS # 3.2 K/mm3 (1.8-7.7); NEUTROPHILS % 54.8 % (36.0-66.0); PLATELET COUNT, AUTOMATED 166 k/mm3 (150-450); RED CELL DISTRIBUTION WIDTH 12.3 % (11.5-14.5); WHITE BLOOD COUNT 5.9 K/mm3 (4.0-10.0)
--- NOTE | 2017-01-11 22:30 | REPUSA ---
CT of the head Clinical history: syncope. Technique: Multiple axial CT images obtained with 5 mm slice thickness were obtained through the head without administration of contrast. The ventricles and sulci are symmetric bilaterally. There are periventricular areas of low attenuatio n throughout the deep white matter. There is no evidence of acute hemorrhage or infarct. There is no midline shift, mass effect, or extra-axial fluid collection. The osseous structures are unremarkable. The visualized paranasal sinuses and mastoid air cells are clear. Impression: No acute intracranial hemorrhage or infarct. Mild chronic small vessel ischemic disease.
--- NOTE | 2017-01-11 22:40 | REPUSA ---
CT of the lumbar spine without contrast Clinical history: Pain. Technique: Multiple axial CT images were obtained through the lumbar spine without administration of contrast. Coronal and sagittal 3-D reconstructed images were also obtained. Findings: The lumbar vertebral bodies are in satisfactory positioning. There is a 5 mm anterior spondylolisthes is of L5 upon S1. Bilateral pars defects are seen at L5. No fractures or dislocations are demonstrate d. Intervertebral disc spaces are moderately narrowed at L4/L5 and L5/S1. There is also minimal degen erative disease at T11/T12. There is no evidence of facet subluxation. The neural foramen appear andrea sly patent. The spinal canal demonstrates normal caliber and contour without evidence of spinal steno sis. The surrounding soft tissues are within normal limits. Impression: 1. No acute fracture or traumatic injury. 2. Multilevel degenerative disc disease, most severe at L4/L5 and L5/S1. 3. Grade 1 anterior spondylolisthesis at L5 upon S1, caused by bilateral pars defects.
[2017-01-11 23:14] LABS: ANION GAP 5 MEQ/L (8-16); BLOOD UREA NITROGEN 21 MG/DL (7-18); CARBON DIOXIDE LEVEL 24 MEQ/L (21-32); CHLORIDE LEVEL 115 MEQ/L (98-107); CREATININE FOR GFR 0.65 MG/DL (0.55-1.02); GLOMERULAR FILTRATION RATE > 60.0 (>39); GLUCOSE, FASTING 88 MG/DL (83-110); POTASSIUM SERUM 3.9 MEQ/L (3.5-5.1); SODIUM LEVEL 144 MEQ/L (136-145)
[2017-01-11 23:36] LABS: INR 0.96
[2017-01-12] VITALS (9 sets, daily range): BP systolic 112–174; BP diastolic 64–89
[2017-01-12] MEDS ORDERED: ONDANSETRON 4MG/2ML VIAL (J2405) IV PRN (00:30)
[2017-01-12] MEDS ORDERED: SERO50TA PO ×2 (00:44→00:47)
[2017-01-12] MEDS ORDERED: SERO1TAB PO (00:44)
[2017-01-12] MEDS ORDERED: NAPR500T3 PO (00:44)
[2017-01-12] MEDS ORDERED: SERT-138 PO (00:44)
[2017-01-12] MEDS ORDERED: MECLIZINE 25 MG TABLET PO PRN (00:45)
[2017-01-12] MEDS ORDERED: NAPROXEN 250 MG TAB PO PRN (00:45)
--- NOTE | 2017-01-12 01:53 | HPE ---
DATE OF ADMISSION: 01/12/2017 PRIMARY CARE PROVIDER: Selene Magana PA-C. CHIEF COMPLAINT: Fall with loss of consciousness. HISTORY OF PRESENT ILLNESS: This is a 76-year-old female patient with underlying medical history of dyslipidemia, hemachromatosis, hemorrhoids, patient sees Dr. Myles for hematology, arthritis of hip and knees, depression, anxiety, insomnia with history of psychosis, MGUS, and also cirrhosis, as well as vertigo and dementia. Patient has been, after being evaluated by primary care provider, in the process of getting placed at a nursing facility due to worsening dementia. As per friends, patient has been inconsistent with taking care of her medication. As per patient, earlier 01/11 afternoon patient had an episode where patient fell in her bedroom with loss of consciousness, unknown why she fell. Patient has been falling more often recently, about once a week. Baseline walking with a cane or getting used to using a cane. Does report hitting on her head. Denies any loss of consciousness, incontinence, tongue biting. Does feel lightheaded and a bit confused. Patient does have history of psychosis and dementia. Patient is a very poor historian. In the emergency room, patient denies any head pain, shoulder pain, hip pain. Denies any significant injury. Patient denies any fevers, chills, chest pain, pressure or discomfort, nausea, vomiting. Reported normal oral intake. Patient lives at home with a partner who is 90 years old, who she has been taking care of. Patient denies any chest pain, palpitations. Recently, a month ago, patient has been started on olanzapine for psychosis. ALLERGIES: No known drug allergies. PAST MEDICAL HISTORY: 1. Dyslipidemia. 2. Cirrhosis. 3. Hemachromatosis. 4. Hemorrhoids. 5. Arthritis of hip and knees. 6. Depression. 7. Anxiety. 8. Insomnia. 9. Psychosis. 10. MGUS. 11. Dementia. PAST SURGICAL HISTORY: 1. Tonsillectomy. 2. Adenoidectomy. 3. Hysterectomy. 4. Bladder suspension. 5. Colonoscopy. 6. Cataract surgery. FAMILY HISTORY: Father with myocardial infarction ([place]) age 70. Mother with brain cancer age 74. SOCIAL HISTORY: Patient denies smoking. Patient has not drank any alcoholic beverages recently. REVIEW OF SYSTEMS: Reported lightheaded, vertigo. Denies any chest pain, pressure or discomfort. Reported falling more frequently. Poor memory, does not remember what is going on. All other review of systems has been negative. Limited history secondary to patient's mental status. HOME MEDICATIONS: - meclizine 25 mg by mouth as needed - naproxen 500 mg by mouth twice a day as needed - olanzapine 5 mg by mouth nightly - Seroquel 50 mg by mouth daily in the morning and 100 mg by mouth at night - Zoloft 100 mg by mouth daily at night - vitamin D 50,000 units weekly - donepezil 5 mg by mouth daily PHYSICAL EXAMINATION: VITAL SIGNS: Temperature 97.4, pulse 55, respirations 20, blood pressure 145/75, pulse oximetry 96% on room air. GENERAL: Patient alert, oriented times three, comfortable, follows commands, in no acute distress. HEENT: Normocephalic, atraumatic. PULMONARY: Bilaterally clear to auscultation. CARDIAC: Regular S1, S2. ABDOMEN: Soft, nontender. Positive bowel sounds. EXTREMITIES: No edema bilateral lower extremities. NEUROLOGICAL: Cranial nerves II-XII grossly intact. No focal deficits. Able to move all four extremities. Bilateral upper and lower extremities 5/5 strength. EKG sinus bradycardia at 51, no ST segment changes. LABORATORY: WBC 5.9, hemoglobin and hematocrit 14.7/40.8, platelets 166. Chemistry: Sodium 144, potassium 3.9, chloride 115, bicarbonate 24, BUN 21, creatinine 0.6. Ammonia 34, troponin negative. TSH 1.94. Alcohol negative. INR 0.96. CT scan of the head within normal limits. ASSESSMENT AND PLAN: This is a 76-year-old female patient with underlying medical history of vertigo, dyslipidemia, hemachromatosis, hemorrhoids, arthritis of the hip and knees, anxiety, depression, insomnia, MGUS, cirrhosis, dementia, admitted status post fall with loss of consciousness. 1. Status post fall with syncope, loss of consciousness. Patient has significant history of psychosis and dementia, has been worked up for frequent falls. Will hold olanzapine given olanzapine is the most recent medication. Followup orthostatics. Cardiac enzymes. Ammonia level slightly elevated which could contribute. Will place the patient on lactulose and recheck ammonia level in the morning. Echocardiogram. Telemetry. Cardiac enzymes. Vitamin D. CT scan is appreciated. CT of the lumbar spine appreciated. Physical therapy. Patient and family services (PFS) consulted for possible placement. 2. Dyslipidemia. Patient does not tolerate statin. Diet controlled. 3. Hemachromatosis. Need outpatient followup. Followup hemoglobin and hematocrit. Patient sees Dr. Myles. 4. Osteoarthritis of hip and knee. Physical therapy. Continue current medication. 5. Depression, anxiety, insomnia with psychosis. Continue current medication. Olanzapine has been discontinued given that it is the most recent medication that could potentially contribute . Will further assess psychosis. Continue current medication and further followup as outpatient. 6. MGUS. Continue outpatient hematological followup. Will monitor patient's kidney function and calcium while inpatient. 7. Cirrhosis with minimal elevation of ammonia. Trial of lactulose. Followup ammonia in the morning. Potential lab deviation. Followup liver function tests. 8. Dementia. Supportive care. PFS consulted for possible placement. Continue Aricept. 9. Deep venous thrombosis (DVT) prophylaxis. Heparin subcutaneously. DISPOSITION: Pending clinical improvement, PFS, further workup for syncope and fall.
[2017-01-12 05:04] LABS: MEAN CORPUSCULAR HEMOGLOBIN 35.7 pg (27.0-33.0); MEAN CORPUSCULAR VOLUME 99.2 fl (80.0-96.0); RED CELL DISTRIBUTION WIDTH 12.8 % (11.5-14.5); WHITE BLOOD COUNT 5.8 K/mm3 (4.0-10.0)
[2017-01-12 05:24] LABS: ALBUMIN 3.3 GM/DL (3.2-5.2); ALBUMIN/GLOBULIN RATIO 1.57 (1.00-1.93); ALKALINE PHOSPHATASE 65 U/L (45-117); ALT/SGPT 31 U/L (12-78); ANION GAP 6 MEQ/L (8-16); AST/SGOT 27 U/L (15-37); BILIRUBIN,TOTAL 0.4 MG/DL (0.2-1.0); BLOOD UREA NITROGEN 20 MG/DL (7-18); CARBON DIOXIDE LEVEL 28 MEQ/L (21-32); CHLORIDE LEVEL 109 MEQ/L (98-107); CREATININE FOR GFR 0.93 MG/DL (0.55-1.02); GLOMERULAR FILTRATION RATE > 60.0 (>39); GLUCOSE, FASTING 109 MG/DL (83-110); MAGNESIUM LEVEL 2.3 MG/DL (1.8-2.4); POTASSIUM SERUM 3.2 MEQ/L (3.5-5.1); SODIUM LEVEL 143 MEQ/L (136-145); TOTAL PROTEIN 5.4 GM/DL (6.4-8.2)
[2017-01-12] MEDS ORDERED: POTASSIUM CHLORIDE 10 MEQ SR TABLET PO ONE (06:00)
[2017-01-12] MEDS: HEPARIN SOD (PORCINE) 5000 UNITS/ML VIAL SC SCH ×2 (08:51→20:02)
[2017-01-12] MEDS: LACTULOSE 20 GM/30 ML SYRUP UD PO SCH ×2 (08:51→20:01)
[2017-01-12] MEDS: SERTRALINE 100 MG TAB PO SCH (08:51)
[2017-01-12] MEDS: SENOKOT S TAB PO SCH ×2 (08:51→20:01)
[2017-01-12] MEDS: QUEtiapine FUMARATE 50 MG TAB PO SCH ×2 (08:51→20:02)
[2017-01-12] MEDS ORDERED: SLF 3 ML SYR IV PRN (11:15)
--- NOTE | 2017-01-12 12:48 | REP ---
PORTABLE CHEST: AP portable view of the chest is performed and compared to prior study of 09/20/2015. There is no evidence of acute infiltrate. Mild basilar interstitial prominence is stable. The heart does not appear to be significantly enlarged. There is mild calcification and tortuosity of the thoracic aorta. The mediastinal silhouette is unchanged. IMPRESSION: No evidence of acute pulmonary disease. Signed by Miah Melendez MD 01/12/2017 07:29 P
[2017-01-12] MEDS: SLF 3 ML SYR IV SCH ×2 (13:48→20:03)
[2017-01-12] MEDS: ACETAMINOPHEN TAB 650MG DOSE (2X325MG) PO PRN ×2 (14:35→20:01)
[2017-01-12] MEDS: DONEPEZIL 5 MG TAB PO SCH (20:02)
[2017-01-12] MEDS: QUEtiapine FUMARATE 100 MG TAB PO SCH (20:12)
[2017-01-12] MEDS ORDERED: QUEtiapine FUMARATE 100 MG TAB PO SCH (21:00)
--- NOTE | 2017-01-12 21:34 | IPN ---
DATE: 01/12/2017 Crystal is admitted by the hospitalist group overnight after falling. She fell in the bedroom, unknown why she fell, but falling frequently. No loss of consciousness. Her past history shows dementia with some psychotic features, is followed by neurology group. She had Magnetic Resonance Imaging (MRI) of the brain done in December 2016, which showed some minor vascular abnormalities. No mass. She has hemochromatosis, is followed annually by hematology/oncology. She only had one phlebotomy and that was over five years ago in 2010, has not needed one since, was just seen this year by Dr. Johnson and iron studies are normal. History of depression, sleep disturbance and she has monoclonal gammopathy of unknown significance with a very low amount of protein on her M-spike and that also requires no intervention. Her health has been declining. Her daughter has been pursuing placement. The patient can not really give me any history. PHYSICAL EXAMINATION: 120/71, pulse 52, respiratory 18, 94% oxygen saturation. She is alert and conversant. Answers are vague and lack content. No jugular venous distension (JVD). Neck supple. Lungs clear. Heart without murmur. Abdomen soft, nontender, no masses. No peripheral edema. Normal strength in the arms and legs. Reviewed her office records. She does not have a MOLST form. She has a healthcare proxy, name is Edwina Hinson, is her healthcare proxy. She has had some inpatient mental unit admissions this year as well. HOME MEDICATIONS: - Zoloft 100 mg daily - Drisdol 50,000 units weekly - Seroquel 50 mg tablets one tablet in the morning, two tablets at bedtime - Aricept 5 mg daily - Zyprexa 5 mg twice a day - meclizine 25 mg every 8 hours as needed for vertigo IMPRESSION: 1. Frequent falls, not sure if she is having syncope or not. Keep her on telemetry for the next 24 hours. 2. Various behavioral disturbances. Continue current medications DISPOSITION: The patient needs placement. Patient Family Services (PFS) will need to get involved tomorrow. She is not currently on her Zyprexa while here. I am not restarting it. She is on a lot of psychiatric medications and perhaps this hospitalization will be a chance to lessen her load of medications. Should behavior deteriorate, this could be restarted.
[2017-01-13 04:00] VITALS: BP 125/69
[2017-01-13] MEDS: SLF 3 ML SYR IV SCH ×3 (04:49→20:37)
[2017-01-13 06:03] LABS: MEAN CORPUSCULAR HEMOGLOBIN 35.7 pg (27.0-33.0); MEAN CORPUSCULAR HGB CONC 35.8 g/dl (32.0-36.5); MEAN CORPUSCULAR VOLUME 99.7 fl (80.0-96.0); RED CELL DISTRIBUTION WIDTH 12.8 % (11.5-14.5); WHITE BLOOD COUNT 5.8 K/mm3 (4.0-10.0)
[2017-01-13 08:00] VITALS: BP 140/66
--- NOTE | 2017-01-13 08:02 | ECGEPIP ---
Stationary ECG Study [facility] - ED Test Date: 2017-01-11 Pat Name: LACI ESPARZA Department: Room: [place] [address] Gender: F Audio Installer: heladio : [id number] Requested By: LAZARO Merino Order Number: [id number] Reading MD: Abelino Sue Measurements Intervals [place] Rate: 51 P: 32 FL: 170 QRS: -11 QRSD: 80 T: 26 QT: 481 QTc: 443 Interpretive Statements SINUS BRADYCARDIA Electronically Signed On 01-13-2017 8:01:44 EDT by Abelino Sue
[2017-01-13 08:07] LABS: ALBUMIN 3.7 GM/DL (3.2-5.2); ALBUMIN/GLOBULIN RATIO 1.68 (1.00-1.93); ALKALINE PHOSPHATASE 68 U/L (45-117); ALT/SGPT 36 U/L (12-78); ANION GAP 6 MEQ/L (8-16); AST/SGOT 30 U/L (15-37); BILIRUBIN,TOTAL 0.7 MG/DL (0.2-1.0); BLOOD UREA NITROGEN 16 MG/DL (7-18); CALCIUM LEVEL 8.3 MG/DL (8.8-10.2); CARBON DIOXIDE LEVEL 26 MEQ/L (21-32); CHLORIDE LEVEL 109 MEQ/L (98-107); CREATININE FOR GFR 0.77 MG/DL (0.55-1.02); GLOMERULAR FILTRATION RATE > 60.0 (>39); GLUCOSE, FASTING 86 MG/DL (83-110); POTASSIUM SERUM 3.8 MEQ/L (3.5-5.1); SODIUM LEVEL 141 MEQ/L (136-145); TOTAL PROTEIN 5.9 GM/DL (6.4-8.2)
--- NOTE | 2017-01-13 08:16 | IPNPDOC ---
Subjective Date Seen The patient was seen on 01/13/17. Subjective Chief Complaint/HPI The patient is a 76-year-old female admitted with a reason for visit of Fall & Syncope. Events since last encounter Pt states she feels better. Denies CP, SOB, Abd pain. Constitutional: Denies: Chills, Fever Pulmonary: Denies: Dyspnea Cardiovascular: Denies: Chest Pain, Palpitations Gastrointestinal: Denies: Nausea, Vomiting, Abdominal Pain Objective Physical Examination General Exam: Positive: Alert, No Acute Distress Neck Exam: Positive: Supple, Negative: JVD Chest Exam: Positive: Clear to auscultation Heart Exam: Positive: Rate Normal, Regular Rhythm Telemetry: Positive: Other Telemetry: (3 seconds SVT) Abdomen Exam: Positive: Normal bowel sounds, Soft, Negative: Tenderness Extremity Exam: Negative: Edema Psych Exam: Positive: Mental status NL (pt knows where she is and the year) Assessment /Plan Problems (1) Fall Status: Acute Problem Specific Plan: Monitor Clinically Problem Text: 01/13 - On Telemetry. No obvious etiology/ ?sycope. Pt did have 3 seconds of SVT on telemetry. PFS have been consulted. Pt will need placement. (2) Behavior disturbance Status: Chronic Problem Specific Plan: Monitor Clinically Problem Text: On Zoloft, Aricept, Seroquel. Zyprexa has been d/c'ed. (3) Dementia Status: Chronic Problem Specific Plan: Monitor Clinically Problem Text: On Zoloft, Aricept, Seroquel. Zyprexa has been d/c'ed. (4) Hemochromatosis Status: Chronic Problem Specific Plan: Monitor Clinically Problem Text: Follows with HemeOnc as outpt. Plan/VTE VTE Prophylaxis Ordered?: Yes VS, I&O, 24H, Fishbone Vital Signs/I&O Vital Signs Date Time Temp Pulse Resp B/P (MAP) Pulse Ox O2 Delivery O2 Flow Rate FiO2 01/13/17 04:00 97.2 52 18 125/69 (87) 97 Room Air I&O- Last 24 Hours up to 6 AM 01/13/17 06:00 Intake Total 1560 ml Output Total 1300 ml Balance 260 ml Laboratory Data 24H LABS Laboratory Tests 2 01/13/17 07:07: CBC/BMP Laboratory Tests 01/13/17 05:46 Red Blood Count 4.25, Mean Corpuscular Volume 99.7 H, Mean Corpuscular Hemoglobin 35.7 H, Mean Corpuscular Hemoglobin Concent 35.8, Red Cell Distribution Width 12.8 Microbiology Microbiology 01/11/17 Urine Culture - Final, Complete Attending Note Attending Note Patient in no distress 3 sec burst of PSVT overnight. Not likely a cause for her falls unless sustained. Will monitor for another 24 hours. So far no behavioral problems observed as a consequence of discontinuation of Zyprexa. Link Phan Jan 13, 2017 08:16 Ashwin Pastrana MD Jan 13, 2017 11:18
[2017-01-13] MEDS: SENOKOT S TAB PO SCH ×2 (09:00→20:37)
[2017-01-13] MEDS: HEPARIN SOD (PORCINE) 5000 UNITS/ML VIAL SC SCH ×2 (10:33→20:37)
[2017-01-13] MEDS: LACTULOSE 20 GM/30 ML SYRUP UD PO SCH ×2 (10:36→20:36)
[2017-01-13] MEDS: ACETAMINOPHEN TAB 650MG DOSE (2X325MG) PO PRN ×3 (10:43→20:38)
[2017-01-13] MEDS: SERTRALINE 100 MG TAB PO SCH (10:43)
[2017-01-13 12:00] VITALS: BP 160/94
[2017-01-13 16:00] VITALS: BP 145/91
[2017-01-13] MEDS: DONEPEZIL 5 MG TAB PO SCH (20:36)
[2017-01-13] MEDS: QUEtiapine FUMARATE 100 MG TAB PO SCH (20:37)
--- NOTE | 2017-01-13 20:54 | ECHO ---
DATE OF PROCEDURE: 01/13/2017 REFERRING PHYSICIAN: Dr. Heavenly Rader INDICATION: Syncope. HEIGHT: 64 inches. WEIGHT: 179 pounds. 2D MEASUREMENTS: Aortic root: 3.1 cm Left atrium: 3.6 cm Ventricular septum: 1.20 cm Posterior wall: 1.23 cm Left ventricle diastole: 4.4 cm Aortic annulus: 1.9 cm DOPPLER MEASUREMENTS: Aortic valve velocity: 156 cm/s LVOT velocity: 103 cm/s LVOT VTI: 25.6 cm Mitral E velocity: 62.2 cm/s Mitral A velocity: 83.4 cm/s Mitral deceleration time: 236 ms Pulmonary acceleration time: 173 ms MITRAL ANNULAR TISSUE DOPPLER: E-prime septal: 5.5 cm/s E-prime lateral: 6.7 cm/s DESCRIPTION: Rhythm was sinus. Image quality was fair. No pericardial effusion. This is a 2D, M-mode, color flow Doppler and pulse wave Doppler examination and included mitral annular tissue Doppler. CONCLUSIONS: 1. Very mild concentric left ventricle hypertrophy. Normal LV regional wall motion and wall thickening. Normal LV systolic function. LVEF 70% by visual estimate. 2. Grade 1 LV diastolic dysfunction (impaired relaxation filling pattern). 3. Very mild aortic valve sclerosis of a 3-cuspid aortic valve. 4. Otherwise unremarkable appearing echocardiogram Doppler. Copies To: Dr. Heavenly Sawyer
[2017-01-13 22:00] VITALS: BP 120/85
[2017-01-14] VITALS (7 sets, daily range): BP systolic 124–145; BP diastolic 65–95
[2017-01-14] MEDS: SLF 3 ML SYR IV SCH ×3 (05:04→22:00)
[2017-01-14 05:55] LABS: MEAN CORPUSCULAR HEMOGLOBIN 35.4 pg (27.0-33.0); MEAN CORPUSCULAR HGB CONC 35.4 g/dl (32.0-36.5); MEAN CORPUSCULAR VOLUME 99.9 fl (80.0-96.0); RED CELL DISTRIBUTION WIDTH 12.8 % (11.5-14.5); WHITE BLOOD COUNT 6.6 K/mm3 (4.0-10.0)
[2017-01-14 07:38] LABS: ALBUMIN 3.5 GM/DL (3.2-5.2); ALBUMIN/GLOBULIN RATIO 1.17 (1.00-1.93); ALKALINE PHOSPHATASE 68 U/L (45-117); ALT/SGPT 36 U/L (12-78); ANION GAP 10 MEQ/L (8-16); AST/SGOT 31 U/L (15-37); BILIRUBIN,TOTAL 0.5 MG/DL (0.2-1.0); BLOOD UREA NITROGEN 15 MG/DL (7-18); CALCIUM LEVEL 8.8 MG/DL (8.8-10.2); CARBON DIOXIDE LEVEL 24 MEQ/L (21-32); CHLORIDE LEVEL 111 MEQ/L (98-107); CREATININE FOR GFR 0.79 MG/DL (0.55-1.02); GLOMERULAR FILTRATION RATE > 60.0 (>39); GLUCOSE, FASTING 89 MG/DL (83-110); POTASSIUM SERUM 3.8 MEQ/L (3.5-5.1); SODIUM LEVEL 145 MEQ/L (136-145); TOTAL PROTEIN 6.5 GM/DL (6.4-8.2)
[2017-01-14] MEDS: SERTRALINE 100 MG TAB PO SCH (09:10)
[2017-01-14] MEDS: SENOKOT S TAB PO SCH ×2 (09:10→21:20)
[2017-01-14] MEDS: HEPARIN SOD (PORCINE) 5000 UNITS/ML VIAL SC SCH ×2 (09:11→21:20)
[2017-01-14] MEDS: LACTULOSE 20 GM/30 ML SYRUP UD PO SCH ×2 (09:11→21:20)
[2017-01-14] MEDS: QUEtiapine FUMARATE 50 MG TAB PO SCH (09:12)
--- NOTE | 2017-01-14 15:30 | IPNPDOC ---
Subjective Date Seen The patient was seen on 01/14/17. Subjective Chief Complaint/HPI The patient is a 76-year-old female admitted with a reason for visit of Fall & Syncope. Constitutional: Denies: Chills, Night Sweats ENT: Reports: Head Aches (reports am headache), Ear Pain (reports bilateral ear discomfort and ringing.) Skin: Denies: Rash Pulmonary: Denies: Dyspnea, Cough Cardiovascular: Denies: Chest Pain, Palpitations, Orthopnea Gastrointestinal: Denies: Nausea, Abdominal Pain Genitourinary: Denies: Dysuria, Frequency Hematologic: Denies: Bruising Objective Physical Examination General Exam: Positive: Alert, No Acute Distress ENT Exam: Negative: Ext Auditory Canal Nml (cerumen in left external canal, obscures TM, no redness no drainage, no edema. Right has normal appearance. ) Neck Exam: Positive: Supple, Negative: JVD, Lymphadenopathy Chest Exam: Positive: Clear to auscultation Heart Exam: Positive: Rate Normal, Regular Rhythm Telemetry: Positive: Other Telemetry: (3 seconds SVT) Abdomen Exam: Positive: Normal bowel sounds, Soft, Negative: Tenderness Extremity Exam: Negative: Edema Psych Exam: Positive: Mental status NL (pt knows where she is and the year, not able to remember her room location when walking with PT.) Assessment /Plan Problems (1) Fall Status: Acute Problem Specific Plan: Monitor Clinically Problem Text: 01/14: no dysrhythmia. may move to floor. 01/13 - On Telemetry. No obvious etiology/ ?sycope. Pt did have 3 seconds of SVT on telemetry. PFS have been consulted. Pt will need placement. (2) Behavior disturbance Status: Chronic Problem Specific Plan: Monitor Clinically Problem Text: 01/14/17. yesterday she was tearful, crying after seeming fine in am. mood neutral and appropriate today. On Zoloft, Aricept, Seroquel. Zyprexa has been d/c'ed. (3) Dementia Status: Chronic Problem Specific Plan: Monitor Clinically Problem Text: On Zoloft, Aricept, Seroquel. Zyprexa has been d/c'ed. (4) Hemochromatosis Status: Chronic Problem Specific Plan: Monitor Clinically Problem Text: Follows with HemeOnc as outpt. Plan/VTE VTE Prophylaxis Ordered?: Yes VS, I&O, 24H, Fishbone Vital Signs/I&O Vital Signs Date Time Temp Pulse Resp B/P (MAP) Pulse Ox O2 Delivery O2 Flow Rate FiO2 01/14/17 12:20 98.8 95 20 139/80 (99) 95 Room Air I&O- Last 24 Hours up to 6 AM 01/14/17 06:00 Intake Total 2820 ml Output Total 4500 ml Balance -1680 ml Laboratory Data 24H LABS Laboratory Tests 2 01/14/17 05:39: Anion Gap 10, Glomerular Filtration Rate > 60.0, Blood Urea Nitrogen 15, Creatinine 0.79, Sodium Level 145, Potassium Level 3.8, Chloride Level 111H, Carbon Dioxide Level 24, Calcium Level 8.8, Aspartate Amino Transf (AST/SGOT) 31 , Alanine Aminotransferase (ALT/SGPT) 36, Alkaline Phosphatase 68, Total Bilirubin 0.5, Total Protein 6.5, Albumin 3.5, Albumin/Globulin Ratio 1.17 CBC/BMP Laboratory Tests 01/14/17 05:39 Red Blood Count 4.39, Mean Corpuscular Volume 99.9 H, Mean Corpuscular Hemoglobin 35.4 H, Mean Corpuscular Hemoglobin Concent 35.4, Red Cell Distribution Width 12.8, Calcium Level 8.8, Aspartate Amino Transf (AST/SGOT) 31 , Alanine Aminotransferase (ALT/SGPT) 36, Alkaline Phosphatase 68, Total Bilirubin 0.5, Total Protein 6.5, Albumin 3.5 Microbiology Microbiology 01/11/17 Urine Culture - Final, Complete Ashwin Pastrana MD Jan 14, 2017 15:30
[2017-01-14] MEDS: QUEtiapine FUMARATE 100 MG TAB PO SCH (21:20)
[2017-01-14] MEDS: DONEPEZIL 5 MG TAB PO SCH (21:20)
[2017-01-14] MEDS: ACETAMINOPHEN TAB 650MG DOSE (2X325MG) PO PRN (21:21)
[2017-01-15 06:00] VITALS: BP 147/70
[2017-01-15] MEDS: SLF 3 ML SYR IV SCH ×3 (06:00→21:35)
[2017-01-15 06:22] LABS: MEAN CORPUSCULAR HEMOGLOBIN 35.2 pg (27.0-33.0); MEAN CORPUSCULAR HGB CONC 34.9 g/dl (32.0-36.5); MEAN CORPUSCULAR VOLUME 100.8 fl (80.0-96.0); RED CELL DISTRIBUTION WIDTH 12.8 % (11.5-14.5); WHITE BLOOD COUNT 6.1 K/mm3 (4.0-10.0)
[2017-01-15 06:34] LABS: ALBUMIN 3.4 GM/DL (3.2-5.2); ALBUMIN/GLOBULIN RATIO 1.26 (1.00-1.93); ALKALINE PHOSPHATASE 63 U/L (45-117); ALT/SGPT 34 U/L (12-78); ANION GAP 6 MEQ/L (8-16); AST/SGOT 26 U/L (15-37); BILIRUBIN,TOTAL 0.5 MG/DL (0.2-1.0); BLOOD UREA NITROGEN 18 MG/DL (7-18); CALCIUM LEVEL 8.7 MG/DL (8.8-10.2); CARBON DIOXIDE LEVEL 26 MEQ/L (21-32); CHLORIDE LEVEL 111 MEQ/L (98-107); CREATININE FOR GFR 0.72 MG/DL (0.55-1.02); GLOMERULAR FILTRATION RATE > 60.0 (>39); GLUCOSE, FASTING 86 MG/DL (83-110); POTASSIUM SERUM 3.7 MEQ/L (3.5-5.1); SODIUM LEVEL 143 MEQ/L (136-145); TOTAL PROTEIN 6.1 GM/DL (6.4-8.2)
[2017-01-15] MEDS ORDERED: VITAMIN D 50,000 UNITS CAPSULE (ERGOCALCIFEROL 1.25MG) PO SCH (09:00)
[2017-01-15] MEDS: HEPARIN SOD (PORCINE) 5000 UNITS/ML VIAL SC SCH ×2 (09:11→21:35)
[2017-01-15] MEDS: SENOKOT S TAB PO SCH ×2 (09:11→21:35)
[2017-01-15] MEDS: QUEtiapine FUMARATE 50 MG TAB PO SCH (09:11)
[2017-01-15] MEDS: SERTRALINE 100 MG TAB PO SCH (09:11)
[2017-01-15] MEDS: LACTULOSE 20 GM/30 ML SYRUP UD PO SCH ×2 (09:11→21:34)
--- NOTE | 2017-01-15 10:41 | IPNPDOC ---
Subjective Date Seen The patient was seen on 01/15/17. Subjective Chief Complaint/HPI The patient is a 76-year-old female admitted with a reason for visit of Fall & Syncope. Constitutional: Denies: Chills, Weakness ENT: Denies: Head Aches, Dysphagia Pulmonary: Denies: Dyspnea, Cough Cardiovascular: Denies: Chest Pain Gastrointestinal: Denies: Nausea, Abdominal Pain Neurological: Denies: Weakness Objective Physical Examination General Exam: Positive: Alert, No Acute Distress ENT Exam: Negative: Ext Auditory Canal Nml (cerumen in left external canal, obscures TM, no redness no drainage, no edema. Right has normal appearance. ) Neck Exam: Positive: Supple, Negative: JVD, Lymphadenopathy Chest Exam: Positive: Clear to auscultation Heart Exam: Positive: Rate Normal, Regular Rhythm Abdomen Exam: Positive: Normal bowel sounds, Soft, Negative: Tenderness Extremity Exam: Negative: Edema Psych Exam: Positive: Mental status NL (pt knows where she is and the year, not able to remember her room location when walking with PT.), Other ( ambulating in halls with walker. and standby assist. also did some steps today.) Assessment /Plan Problems (1) Fall Status: Acute Problem Specific Plan: Monitor Clinically Problem Text: 01/14: no dysrhythmia. may move to floor. 01/13 - On Telemetry. No obvious etiology/ ?sycope. Pt did have 3 seconds of SVT on telemetry. PFS have been consulted. Pt will need placement. (2) Behavior disturbance Status: Chronic Problem Specific Plan: Monitor Clinically Problem Text: 01/14/17. yesterday she was tearful, crying after seeming fine in am. mood neutral and appropriate today. On Zoloft, Aricept, Seroquel. Zyprexa has been d/c'ed. (3) Dementia Status: Chronic Problem Specific Plan: Monitor Clinically Problem Text: On Zoloft, Aricept, Seroquel. Zyprexa has been d/c'ed. (4) Hemochromatosis Status: Chronic Problem Specific Plan: Monitor Clinically Problem Text: Follows with HemeOnc as outpt. Plan/VTE VTE Prophylaxis Ordered?: Yes Plan Anticipated Discharge: Skilled Nursing VS, I&O, 24H, Fishbone Vital Signs/I&O Vital Signs Date Time Temp Pulse Resp B/P (MAP) Pulse Ox O2 Delivery O2 Flow Rate FiO2 01/15/17 06:00 96.8 59 18 147/70 (95) 96 Room Air I&O- Last 24 Hours up to 6 AM 01/15/17 06:00 Intake Total 920 ml Output Total 650 ml Balance 270 ml Laboratory Data 24H LABS Laboratory Tests 2 01/15/17 05:41: Anion Gap 6L, Glomerular Filtration Rate > 60.0, Blood Urea Nitrogen 18, Creatinine 0.72, Sodium Level 143, Potassium Level 3.7, Chloride Level 111H, Carbon Dioxide Level 26, Calcium Level 8.7L, Aspartate Amino Transf (AST/SGOT) 26, Alanine Aminotransferase (ALT/SGPT) 34, Alkaline Phosphatase 63, Total Bilirubin 0.5, Total Protein 6.1L, Albumin 3.4, Albumin/Globulin Ratio 1.26 CBC/BMP Laboratory Tests 01/15/17 05:41 Red Blood Count 4.31, Mean Corpuscular Volume 100.8 H, Mean Corpuscular Hemoglobin 35.2 H, Mean Corpuscular Hemoglobin Concent 34.9, Red Cell Distribution Width 12.8, Calcium Level 8.7 L, Aspartate Amino Transf (AST/SGOT) 26, Alanine Aminotransferase (ALT/SGPT) 34, Alkaline Phosphatase 63, Total Bilirubin 0.5, Total Protein 6.1 L, Albumin 3.4 Microbiology Microbiology 01/11/17 Urine Culture - Final, Complete Ashwin Pastrana MD Jan 15, 2017 10:41
[2017-01-15] MEDS: QUEtiapine FUMARATE 100 MG TAB PO SCH (21:34)
[2017-01-15] MEDS: DONEPEZIL 5 MG TAB PO SCH (21:35)
[2017-01-15 22:00] VITALS: BP 123/69
[2017-01-16] MEDS: SLF 3 ML SYR IV SCH ×3 (05:20→20:29)
[2017-01-16 05:54] LABS: MEAN CORPUSCULAR HEMOGLOBIN 35.6 pg (27.0-33.0); MEAN CORPUSCULAR HGB CONC 35.6 g/dl (32.0-36.5); MEAN CORPUSCULAR VOLUME 99.9 fl (80.0-96.0); RED CELL DISTRIBUTION WIDTH 12.9 % (11.5-14.5); WHITE BLOOD COUNT 6.5 K/mm3 (4.0-10.0)
[2017-01-16 06:00] VITALS: BP 123/77
[2017-01-16 06:19] LABS: ALBUMIN 3.3 GM/DL (3.2-5.2); ALBUMIN/GLOBULIN RATIO 1.22 (1.00-1.93); ALKALINE PHOSPHATASE 62 U/L (45-117); ALT/SGPT 45 U/L (12-78); ANION GAP 7 MEQ/L (8-16); AST/SGOT 38 U/L (15-37); BILIRUBIN,TOTAL 0.4 MG/DL (0.2-1.0); BLOOD UREA NITROGEN 21 MG/DL (7-18); CALCIUM LEVEL 8.9 MG/DL (8.8-10.2); CARBON DIOXIDE LEVEL 26 MEQ/L (21-32); CHLORIDE LEVEL 105 MEQ/L (98-107); CREATININE FOR GFR 0.83 MG/DL (0.55-1.02); GLOMERULAR FILTRATION RATE > 60.0 (>39); GLUCOSE, FASTING 83 MG/DL (83-110); POTASSIUM SERUM 3.7 MEQ/L (3.5-5.1); SODIUM LEVEL 138 MEQ/L (136-145)
[2017-01-16] MEDS: LACTULOSE 20 GM/30 ML SYRUP UD PO SCH ×2 (10:45→20:14)
[2017-01-16] MEDS: SENOKOT S TAB PO SCH ×2 (10:46→20:13)
[2017-01-16] MEDS: QUEtiapine FUMARATE 50 MG TAB PO SCH (10:46)
[2017-01-16] MEDS: HEPARIN SOD (PORCINE) 5000 UNITS/ML VIAL SC SCH ×2 (10:46→20:13)
[2017-01-16] MEDS: SERTRALINE 100 MG TAB PO SCH (10:47)
[2017-01-16 14:00] VITALS: BP 137/73
[2017-01-16] MEDS: DONEPEZIL 5 MG TAB PO SCH (20:13)
[2017-01-16] MEDS: QUEtiapine FUMARATE 100 MG TAB PO SCH (20:14)
[2017-01-16 22:00] VITALS: BP 119/74
[2017-01-17 05:47] LABS: MEAN CORPUSCULAR HEMOGLOBIN 36.3 pg (27.0-33.0); MEAN CORPUSCULAR HGB CONC 36.4 g/dl (32.0-36.5); MEAN CORPUSCULAR VOLUME 99.7 fl (80.0-96.0); RED CELL DISTRIBUTION WIDTH 12.8 % (11.5-14.5); WHITE BLOOD COUNT 6.7 K/mm3 (4.0-10.0)
[2017-01-17 06:00] VITALS: BP 132/99
[2017-01-17 06:03] LABS: ALBUMIN 3.4 GM/DL (3.2-5.2); ALBUMIN/GLOBULIN RATIO 1.31 (1.00-1.93); ALKALINE PHOSPHATASE 65 U/L (45-117); ALT/SGPT 44 U/L (12-78); ANION GAP 8 MEQ/L (8-16); AST/SGOT 36 U/L (15-37); BILIRUBIN,TOTAL 0.4 MG/DL (0.2-1.0); BLOOD UREA NITROGEN 24 MG/DL (7-18); CALCIUM LEVEL 8.6 MG/DL (8.8-10.2); CARBON DIOXIDE LEVEL 27 MEQ/L (21-32); CHLORIDE LEVEL 107 MEQ/L (98-107); GLOMERULAR FILTRATION RATE > 60.0 (>39); GLUCOSE, FASTING 87 MG/DL (83-110); SODIUM LEVEL 142 MEQ/L (136-145)
[2017-01-17] MEDS: LACTULOSE 20 GM/30 ML SYRUP UD PO SCH ×2 (09:56→20:33)
[2017-01-17] MEDS: HEPARIN SOD (PORCINE) 5000 UNITS/ML VIAL SC SCH ×2 (09:57→20:33)
[2017-01-17] MEDS: SERTRALINE 100 MG TAB PO SCH (09:57)
[2017-01-17] MEDS: QUEtiapine FUMARATE 50 MG TAB PO SCH (09:57)
[2017-01-17] MEDS: SENOKOT S TAB PO SCH ×2 (09:57→20:34)
[2017-01-17 14:00] VITALS: BP 135/65
--- NOTE | 2017-01-17 16:04 | DSES ---
DATE OF ADMISSION: 01/12/2017 DATE OF DISCHARGE: 01/16/2017 BRIEF HISTORY AND PHYSICAL: The patient is a 76-year-old patient of [facility]ana[facility] with a history of dementia who was in the process of undergoing a [facility] to pursue placement, but on 01/11/2017 apparently fell in her bedroom and lost consciousness. It is uncertain why she fell. She has been falling more often recently, about once a week. PAST MEDICAL HISTORY: Significant for: 1. Dementia with psychosis. 2. Dyslipidemia. 3. Cirrhosis. 4. Hemochromatosis. 5. Hemorrhoids. 6. Arthritis of the hips. 7. Depression. 8. Anxiety. 9. Insomnia. 10. Monoclonal gammopathy of unknown significance. PERTINENT LABORATORY DATA ON ADMISSION: White count 5.9, hemoglobin 14.7, platelets 166,000. Sodium 144, potassium 3.9, BUN 21, creatinine 0.65, glucose 88, ammonia levels are 34, TSH 1.9. CT of the head showed small vessel ischemic disease. HOSPITAL COURSE: The patient was admitted for fall and syncope. She underwent monitoring on telemetry. No dysrhythmia was noted with the exception of 3 seconds of supraventricular tachycardia (SVT). No further syncope has occurred throughout the hospitalization. She has advanced dementia with behavioral disturbances on Zoloft, Aricept and Seroquel. Her Zyprexa has been discontinued and she has been essentially stable throughout the hospitalization. At this point, she will require placement and will be made group home facility (SNF) today. Her medications will be dictated at the time [facility]. DISCHARGE DIAGNOSES: 1. Syncope. 2. Fall. 3. Dementia with psychosis. 4. Hemochromatosis. 5. Cirrhosis.
[2017-01-17] MEDS: DONEPEZIL 5 MG TAB PO SCH (20:34)
[2017-01-17] MEDS: QUEtiapine FUMARATE 100 MG TAB PO SCH (20:34)
[2017-01-18 05:54] LABS: MEAN CORPUSCULAR HEMOGLOBIN 35.6 pg (27.0-33.0); MEAN CORPUSCULAR HGB CONC 35.5 g/dl (32.0-36.5); MEAN CORPUSCULAR VOLUME 100.1 fl (80.0-96.0); RED CELL DISTRIBUTION WIDTH 12.5 % (11.5-14.5); WHITE BLOOD COUNT 5.8 K/mm3 (4.0-10.0)
[2017-01-18 06:00] VITALS: BP 113/75
[2017-01-18 06:07] LABS: ALBUMIN 3.4 GM/DL (3.2-5.2); ALBUMIN/GLOBULIN RATIO 1.17 (1.00-1.93); ALKALINE PHOSPHATASE 70 U/L (45-117); ALT/SGPT 43 U/L (12-78); ANION GAP 9 MEQ/L (8-16); AST/SGOT 29 U/L (15-37); BILIRUBIN,TOTAL 0.4 MG/DL (0.2-1.0); BLOOD UREA NITROGEN 21 MG/DL (7-18); CALCIUM LEVEL 8.5 MG/DL (8.8-10.2); CARBON DIOXIDE LEVEL 26 MEQ/L (21-32); CHLORIDE LEVEL 106 MEQ/L (98-107); CREATININE FOR GFR 0.76 MG/DL (0.55-1.02); GLOMERULAR FILTRATION RATE > 60.0 (>39); GLUCOSE, FASTING 85 MG/DL (83-110); POTASSIUM SERUM 3.9 MEQ/L (3.5-5.1); SODIUM LEVEL 141 MEQ/L (136-145); TOTAL PROTEIN 6.3 GM/DL (6.4-8.2)
[2017-01-18] MEDS: LACTULOSE 20 GM/30 ML SYRUP UD PO SCH ×2 (08:40→20:26)
[2017-01-18] MEDS: SENOKOT S TAB PO SCH ×2 (08:40→20:27)
[2017-01-18] MEDS: SERTRALINE 100 MG TAB PO SCH (08:40)
[2017-01-18] MEDS: QUEtiapine FUMARATE 50 MG TAB PO SCH (08:40)
[2017-01-18] MEDS: HEPARIN SOD (PORCINE) 5000 UNITS/ML VIAL SC SCH ×2 (08:40→20:26)
[2017-01-18 09:30] VITALS: BP 106/61
[2017-01-18] MEDS: DONEPEZIL 5 MG TAB PO SCH (20:26)
[2017-01-18] MEDS: QUEtiapine FUMARATE 100 MG TAB PO SCH (20:26)
[2017-01-19 06:00] VITALS: BP 123/67
[2017-01-19] MEDS: QUEtiapine FUMARATE 50 MG TAB PO SCH (09:13)
[2017-01-19] MEDS: SENOKOT S TAB PO SCH ×2 (09:13→20:52)
[2017-01-19] MEDS: LACTULOSE 20 GM/30 ML SYRUP UD PO SCH ×2 (09:13→20:52)
[2017-01-19] MEDS: HEPARIN SOD (PORCINE) 5000 UNITS/ML VIAL SC SCH ×2 (09:13→20:52)
[2017-01-19] MEDS: SERTRALINE 100 MG TAB PO SCH (09:13)
[2017-01-19] MEDS: DONEPEZIL 5 MG TAB PO SCH (20:51)
[2017-01-19] MEDS: QUEtiapine FUMARATE 100 MG TAB PO SCH (20:52)
[2017-01-20 06:00] VITALS: BP 119/57
[2017-01-20] MEDS: QUEtiapine FUMARATE 50 MG TAB PO SCH (09:51)
[2017-01-20] MEDS: SERTRALINE 100 MG TAB PO SCH (09:51)
[2017-01-20] MEDS: HEPARIN SOD (PORCINE) 5000 UNITS/ML VIAL SC SCH ×2 (09:51→21:09)
[2017-01-20] MEDS: LACTULOSE 20 GM/30 ML SYRUP UD PO SCH ×2 (09:51→21:09)
[2017-01-20] MEDS: SENOKOT S TAB PO SCH ×2 (09:51→21:08)
[2017-01-20] MEDS: ACETAMINOPHEN TAB 650MG DOSE (2X325MG) PO PRN (21:08)
[2017-01-20] MEDS: QUEtiapine FUMARATE 100 MG TAB PO SCH (21:08)
[2017-01-20] MEDS: DONEPEZIL 5 MG TAB PO SCH (21:08)
[2017-01-20 22:00] VITALS: BP 125/75
[2017-01-21] MEDS: QUEtiapine FUMARATE 50 MG TAB PO SCH (08:56)
[2017-01-21] MEDS: SENOKOT S TAB PO SCH (08:56)
[2017-01-21] MEDS: SERTRALINE 100 MG TAB PO SCH (08:56)
[2017-01-21] MEDS: HEPARIN SOD (PORCINE) 5000 UNITS/ML VIAL SC SCH (08:56)
[2017-01-21] MEDS: LACTULOSE 20 GM/30 ML SYRUP UD PO SCH (08:56)
[2017-01-21] MEDS ORDERED: LACT10SO3 PO (10:22)
--- NOTE | 2017-01-22 07:59 | DSES ---
DATE OF ADMISSION: 01/12/2017 DATE OF DISCHARGE: 01/21/2017 Crystal was placed on [facility] facility (SNF) status on 01/16/2017. She will be discharged from the hospital on 01/21/2017. She is being discharged to [facility]. Her hospital course has remained unchanged. Her diagnoses have also remained unchanged. Her discharge medications include: - lactulose 15 mL by mouth twice a day - benazepril 5 mg daily - meclizine 25 mg as needed for vertigo - Naproxen 500 mg twice a day as needed for pain - Seroquel 50 mg daily and 100 mg before bed - sertraline 100 mg daily - vitamin D 50,000 units weekly Discharge plan will be to followup with Dr. Hull. Activity should be as tolerated. Diet should be regular.
== END 2017-01-21 11:47 | DRG 92 ==
LOC: M ED 20:41 → EDBD 20:41 → M ED INP 01-12 00:24 → M PCU 01-12 01:33 → M MSPAV 01-14 18:46
PROVIDERS: ADMIT Hospitalist; ATTEND Family Medicine
DX: R29.6 Repeated falls (principal); F03.91 Unspecified dementia, unspecified severity, with behavioral disturbance; E78.5 Hyperlipidemia, unspecified; E83.119 Hemochromatosis, unspecified; F32.9 Major depressive disorder, single episode, unspecified; F41.9 Anxiety disorder, unspecified; G47.00 Insomnia, unspecified; D47.2 Monoclonal gammopathy; K74.60 Unspecified cirrhosis of liver; M16.0 Bilateral primary osteoarthritis of hip; M17.0 Bilateral primary osteoarthritis of knee; K64.8 Other hemorrhoids; Z79.1 Long term (current) use of non-steroidal anti-inflammatories (NSAID); Z79.899 Other long term (current) drug therapy

== ENCOUNTER → 2017-03-06 | Outpatient (REF) | payer MEDICARE ==
[~2017-03-06] MED LIST changes: +LACT10SO3 PO; +NAPR500T3 PO; +SERO1TAB PO; +SERO50TA PO; +SERT-138 PO
== END ==
LOC: SKLAB6 07:00
PROVIDERS: ATTEND Family Medicine
DX: E55.9 Vitamin D deficiency, unspecified (principal); F03.90 Unspecified dementia, unspecified severity, without behavioral disturbance, psychotic disturbance, mood disturbance, and anxiety

== ENCOUNTER → 2017-05-29 | Outpatient (REF) | payer MEDICARE ==
[2017-05-29 09:39] LABS: ALBUMIN 3.7 GM/DL (3.2-5.2); ALBUMIN/GLOBULIN RATIO 1.03 (1.00-1.93); BILIRUBIN,TOTAL 0.4 MG/DL (0.2-1.0); CREATININE FOR GFR 1.02 MG/DL (0.55-1.02); GLOMERULAR FILTRATION RATE 55.8 (>39); TOTAL PROTEIN 7.3 GM/DL (6.4-8.2)
== END ==
LOC: SKLAB5 07:51
PROVIDERS: ATTEND Family Medicine
DX: E55.9 Vitamin D deficiency, unspecified (principal)

== ENCOUNTER → 2017-06-26 | Outpatient (REF) | payer MEDICARE ==
[2017-06-26 09:18] LABS: AMMONIA 11 uMOL/L (<32)
== END ==
LOC: SKLAB5 07:50
DX: K74.60 Unspecified cirrhosis of liver (principal)
CPT/HCPCS: 82140

== ENCOUNTER → 2017-07-10 | Outpatient (REF) | payer OTHER, MEDICARE ==
[2017-07-10 16:20] LABS: APPEARANCE, URINE HAZY (CLEAR); BACTERIA, URINE AUTO 1+ (NEGATIVE); BILIRUBIN, URINE AUTO NEGATIVE (NEGATIVE); BLOOD, URINE BLOOD NEGATIVE (NEGATIVE); COLOR, URINE YELLOW (YELLOW); GLUCOSE, URINE (UA) AUTO NEGATIVE (NEGATIVE); KETONE, URINE AUTO NEGATIVE (NEGATIVE); LEUKOCYTE ESTERASE, URINE AUTO 1+ (NEGATIVE); MUCUS, URINE SMALL (NEGATIVE); NITRITE, URINE AUTO NEGATIVE (NEGATIVE); PROTEIN, URINE AUTO NEGATIVE (NEGATIVE); RBC, URINE AUTO 4 /HPF (0-3); SPECIFIC GRAVITY URINE AUTO 1.021 (1.002-1.035); SQUAMOUS EPITHELIAL CELL UR AU 4 /HPF (0-6); UROBILINOGEN, URINE AUTO 0.2 mg/dL (0.0-2.0); WBC, URINE AUTO 11 /HPF (0-3)
== END ==
LOC: M LAB 15:59
DX: R05 Cough (principal)

== ENCOUNTER → 2017-07-24 | Outpatient (REF) | payer MEDICARE, OTHER ==
[2017-07-24 09:01] LABS: AMMONIA 16 uMOL/L (<32)
== END ==
LOC: SKLAB5 07:50
DX: M12.9 Arthropathy, unspecified (principal)
CPT/HCPCS: 82140

== ENCOUNTER → 2017-08-21 | Outpatient (REF) | payer OTHER, MEDICARE ==
[2017-08-21 08:52] LABS: AMMONIA < 10 uMOL/L (<32)
[2017-08-21 09:00] LABS: ALBUMIN 3.8 GM/DL (3.2-5.2); ALBUMIN/GLOBULIN RATIO 1.27 (1.00-1.93); ALKALINE PHOSPHATASE 87 U/L (45-117); ALT/SGPT 27 U/L (12-78); ANION GAP 6 MEQ/L (8-16); AST/SGOT 22 U/L (7-37); BILIRUBIN,TOTAL 0.4 MG/DL (0.2-1.0); BLOOD UREA NITROGEN 13 MG/DL (7-18); CALCIUM LEVEL 8.8 MG/DL (8.8-10.2); CARBON DIOXIDE LEVEL 29 MEQ/L (21-32); CHLORIDE LEVEL 108 MEQ/L (98-107); CREATININE FOR GFR 0.84 MG/DL (0.55-1.30); GLOMERULAR FILTRATION RATE > 60.0 (>39); GLUCOSE, FASTING 97 MG/DL (70-100); POTASSIUM SERUM 4.3 MEQ/L (3.5-5.1); SODIUM LEVEL 143 MEQ/L (136-145); TOTAL PROTEIN 6.8 GM/DL (6.4-8.2)
== END ==
LOC: SKLAB5 07:27
DX: M19.90 Unspecified osteoarthritis, unspecified site (principal); F03.90 Unspecified dementia, unspecified severity, without behavioral disturbance, psychotic disturbance, mood disturbance, and anxiety
CPT/HCPCS: 82140

== ENCOUNTER → 2017-09-25 | Outpatient (REF) | payer OTHER ==
[2017-09-25 09:30] LABS: AMMONIA 21 uMOL/L (<32)
[2017-09-25 09:34] LABS: FERRITIN 85 NG/ML (8-252); IRON (FE) 75 UG/DL (50-170); PERCENT SATURATION 24.4 % (13.2-45.0); TOTAL IRON BINDING CAPACITY 307 UG/DL (250-450)
== END ==
LOC: SKLAB5 07:32
DX: D64.9 Anemia, unspecified (principal); E83.119 Hemochromatosis, unspecified
CPT/HCPCS: 82140

== ENCOUNTER → 2017-10-23 | Outpatient (REF) | payer OTHER, MEDICARE ==
[2017-10-23 07:59] LABS: AMMONIA 27 uMOL/L (<32)
== END ==
LOC: SKLAB5 10:25
DX: R94.5 Abnormal results of liver function studies (principal)
CPT/HCPCS: 82140

== ENCOUNTER → 2017-11-27 | Outpatient (REF) | payer OTHER, MEDICARE ==
[2017-11-27 07:51] LABS: HEMATOCRIT 46.4 % (36.0-47.0); HEMOGLOBIN 16.4 g/dl (12.0-15.5); MEAN CORPUSCULAR HEMOGLOBIN 33.4 pg (27.0-33.0); MEAN CORPUSCULAR HGB CONC 35.3 g/dl (32.0-36.5); MEAN CORPUSCULAR VOLUME 94.5 fl (80.0-96.0); PLATELET COUNT, AUTOMATED 164 10^3/uL (150-450); RED BLOOD COUNT 4.91 10^6/uL (4.00-5.40); RED CELL DISTRIBUTION WIDTH 12.8 % (11.5-14.5); WHITE BLOOD COUNT 6.8 10^3/uL (4.0-10.0)
[2017-11-27 08:11] LABS: AMMONIA 21 uMOL/L (<32)
[2017-11-27 08:25] LABS: ALBUMIN 3.9 GM/DL (3.2-5.2); ALBUMIN/GLOBULIN RATIO 1.44 (1.00-1.93); ALKALINE PHOSPHATASE 86 U/L (45-117); ALT/SGPT 24 U/L (12-78); ANION GAP 7 MEQ/L (8-16); AST/SGOT 16 U/L (7-37); BILIRUBIN,TOTAL 0.6 MG/DL (0.2-1.0); BLOOD UREA NITROGEN 16 MG/DL (7-18); CALCIUM LEVEL 8.8 MG/DL (8.8-10.2); CARBON DIOXIDE LEVEL 26 MEQ/L (21-32); CHLORIDE LEVEL 112 MEQ/L (98-107); CREATININE FOR GFR 0.94 MG/DL (0.55-1.30); GLOMERULAR FILTRATION RATE > 60.0 (>39); GLUCOSE, FASTING 90 MG/DL (70-100); POTASSIUM SERUM 4.1 MEQ/L (3.5-5.1); SODIUM LEVEL 145 MEQ/L (136-145); TOTAL PROTEIN 6.6 GM/DL (6.4-8.2)
[2017-11-27 09:38] LABS: TOTAL 25(OH) VITAMIN D 50.4 NG/ML (30.0-100.0)
== END ==
LOC: SKLAB5 12:13
DX: F03.90 Unspecified dementia, unspecified severity, without behavioral disturbance, psychotic disturbance, mood disturbance, and anxiety (principal); E55.9 Vitamin D deficiency, unspecified; M17.9 Osteoarthritis of knee, unspecified
CPT/HCPCS: 82140

== ENCOUNTER → 2017-12-25 | Outpatient (REF) | payer OTHER, MEDICARE ==
[2017-12-25 09:16] LABS: AMMONIA 17 uMOL/L (<32)
== END ==
LOC: SKLAB5 07:18
DX: E83.119 Hemochromatosis, unspecified (principal); M19.90 Unspecified osteoarthritis, unspecified site; F32.9 Major depressive disorder, single episode, unspecified; F03.90 Unspecified dementia, unspecified severity, without behavioral disturbance, psychotic disturbance, mood disturbance, and anxiety
CPT/HCPCS: 82140

== ENCOUNTER → 2018-01-22 | Outpatient (REF) | payer OTHER, MEDICARE ==
[2018-01-22 09:15] LABS: HEMATOCRIT 43.8 % (36.0-47.0); HEMOGLOBIN 15.3 g/dl (12.0-15.5); MEAN CORPUSCULAR HEMOGLOBIN 33.8 pg (27.0-33.0); MEAN CORPUSCULAR HGB CONC 34.9 g/dl (32.0-36.5); MEAN CORPUSCULAR VOLUME 96.9 fl (80.0-96.0); PLATELET COUNT, AUTOMATED 150 10^3/uL (150-450); RED BLOOD COUNT 4.52 10^6/uL (4.00-5.40); RED CELL DISTRIBUTION WIDTH 12.4 % (11.5-14.5); WHITE BLOOD COUNT 6.8 10^3/uL (4.0-10.0)
[2018-01-22 09:44] LABS: ANION GAP 9 MEQ/L (8-16); BLOOD UREA NITROGEN 16 MG/DL (7-18); CALCIUM LEVEL 8.8 MG/DL (8.8-10.2); CARBON DIOXIDE LEVEL 28 MEQ/L (21-32); CHLORIDE LEVEL 109 MEQ/L (98-107); CREATININE FOR GFR 1.07 MG/DL (0.55-1.30); FERRITIN 85 NG/ML (8-252); GLOMERULAR FILTRATION RATE 52.7 (>39); GLUCOSE, FASTING 108 MG/DL (70-100); IRON (FE) 97 UG/DL (50-170); PERCENT SATURATION 36.7 % (13.2-45.0); POTASSIUM SERUM 4.2 MEQ/L (3.5-5.1); SODIUM LEVEL 146 MEQ/L (136-145); TOTAL IRON BINDING CAPACITY 264 UG/DL (250-450)
== END ==
LOC: SKLAB5 09:28
DX: D64.9 Anemia, unspecified (principal)
CPT/HCPCS: 83550

== ENCOUNTER → 2018-02-26 | Outpatient (REF) | payer OTHER, MEDICARE ==
[2018-02-26 08:48] LABS: AMMONIA 43 uMOL/L (<32)
[2018-02-26 08:53] LABS: ALBUMIN 3.9 GM/DL (3.2-5.2); ALBUMIN/GLOBULIN RATIO 1.22 (1.00-1.93); ALKALINE PHOSPHATASE 78 U/L (45-117); ALT/SGPT 21 U/L (12-78); ANION GAP 9 MEQ/L (8-16); AST/SGOT 17 U/L (7-37); BILIRUBIN,TOTAL 0.5 MG/DL (0.2-1.0); BLOOD UREA NITROGEN 15 MG/DL (7-18); CALCIUM LEVEL 9.2 MG/DL (8.8-10.2); CARBON DIOXIDE LEVEL 26 MEQ/L (21-32); CHLORIDE LEVEL 107 MEQ/L (98-107); CREATININE FOR GFR 0.96 MG/DL (0.55-1.30); GLOMERULAR FILTRATION RATE 59.7 (>39); GLUCOSE, FASTING 87 MG/DL (70-100); POTASSIUM SERUM 4.4 MEQ/L (3.5-5.1); SODIUM LEVEL 142 MEQ/L (136-145); TOTAL PROTEIN 7.1 GM/DL (6.4-8.2)
== END ==
LOC: SKLAB5 09:46
DX: I50.9 Heart failure, unspecified (principal); M19.90 Unspecified osteoarthritis, unspecified site; F03.90 Unspecified dementia, unspecified severity, without behavioral disturbance, psychotic disturbance, mood disturbance, and anxiety
CPT/HCPCS: 82140

== ENCOUNTER 2018-03-20 21:04 | Emergency (ER) | payer MEDICARE, OTHER ==
[2018-03-20] MEDS: ACETAMINOPHEN 325 MG TAB PO (22:41)
== END 2018-03-20 23:13 | disposition home or self-care (01) ==
LOC: M ED 21:04
DX: S40.021A Contusion of right upper arm, initial encounter (principal); S40.022A Contusion of left upper arm, initial encounter; S70.01XA Contusion of right hip, initial encounter; S70.02XA Contusion of left hip, initial encounter; W01.0XXA Fall on same level from slipping, tripping and stumbling without subsequent striking against object, initial encounter; Y92.129 Unspecified place in nursing home as the place of occurrence of the external cause; F03.90 Unspecified dementia, unspecified severity, without behavioral disturbance, psychotic disturbance, mood disturbance, and anxiety; E78.70 Disorder of bile acid and cholesterol metabolism, unspecified
CPT/HCPCS: 72170

== ENCOUNTER → 2018-03-21 | Outpatient (CLI) | payer MEDICARE | LOC: M PSYSKH 08:00 | DX: R45.1 Restlessness and agitation (principal); R45.5 Hostility ==

== ENCOUNTER → 2018-03-25 | Outpatient (REF) | payer MEDICARE | LOC: SKLAB5 08:57 | DX: I50.9 Heart failure, unspecified (principal); F41.9 Anxiety disorder, unspecified | CPT/HCPCS: 93005 ==

== ENCOUNTER → 2018-03-26 | Outpatient (REF) | payer OTHER, MEDICARE ==
[2018-03-26 09:45] LABS: AMMONIA 47 uMOL/L (<32)
[2018-03-26 10:32] LABS: TOTAL 25(OH) VITAMIN D 37.4 NG/ML (30.0-100.0)
== END ==
LOC: SKLAB5 08:19
DX: F03.90 Unspecified dementia, unspecified severity, without behavioral disturbance, psychotic disturbance, mood disturbance, and anxiety (principal); E55.9 Vitamin D deficiency, unspecified
CPT/HCPCS: 82140

== ENCOUNTER → 2018-04-23 | Outpatient (REF) | payer OTHER, MEDICARE ==
[2018-04-23 08:39] LABS: ESTIMATED AVERAGE GLUCOSE 108 MG/DL (60-110); HEMOGLOBIN A1c 5.4 %
[2018-04-23 08:44] LABS: CHOLESTEROL LEVEL 333 MG/DL (<200); HDL CHOLESTEROL 39 MG/DL (>40); LDL CHOLESTEROL 239 MG/DL (<100); TRIGLYCERIDES LEVEL 276 MG/DL (<150)
[2018-04-23 08:45] LABS: AMMONIA 14 uMOL/L (<32)
== END ==
LOC: SKLAB5 07:49
DX: F03.90 Unspecified dementia, unspecified severity, without behavioral disturbance, psychotic disturbance, mood disturbance, and anxiety (principal); M25.569 Pain in unspecified knee
CPT/HCPCS: 82140

== ENCOUNTER → 2018-05-04 | Outpatient (REF) | payer OTHER, MEDICARE ==
[2018-05-04 09:52] LABS: ALBUMIN 3.7 GM/DL (3.2-5.2); ALBUMIN/GLOBULIN RATIO 1.32 (1.00-1.93); ALKALINE PHOSPHATASE 85 U/L (45-117); ALT/SGPT 20 U/L (12-78); AST/SGOT 22 U/L (7-37); BILIRUBIN,DIRECT 0.1 MG/DL (0.0-0.2); BILIRUBIN,TOTAL 0.6 MG/DL (0.2-1.0); TOTAL PROTEIN 6.5 GM/DL (6.4-8.2)
== END ==
LOC: SKLAB5 08:20
DX: E78.5 Hyperlipidemia, unspecified (principal)
CPT/HCPCS: 80076

== ENCOUNTER → 2018-05-28 | Outpatient (REF) | payer OTHER, MEDICARE ==
[2018-05-28 08:25] LABS: AMMONIA 27 uMOL/L (<32)
[2018-05-28 08:37] LABS: ALBUMIN 3.8 GM/DL (3.2-5.2); ALBUMIN/GLOBULIN RATIO 1.36 (1.00-1.93); ALKALINE PHOSPHATASE 80 U/L (45-117); ALT/SGPT 25 U/L (12-78); ANION GAP 7 MEQ/L (8-16); AST/SGOT 18 U/L (7-37); BILIRUBIN,TOTAL 0.5 MG/DL (0.2-1.0); BLOOD UREA NITROGEN 15 MG/DL (7-18); CALCIUM LEVEL 8.7 MG/DL (8.8-10.2); CARBON DIOXIDE LEVEL 26 MEQ/L (21-32); CHLORIDE LEVEL 112 MEQ/L (98-107); CREATININE FOR GFR 0.89 MG/DL (0.55-1.30); GLOMERULAR FILTRATION RATE > 60.0 (>39); GLUCOSE, FASTING 89 MG/DL (70-100); POTASSIUM SERUM 4.4 MEQ/L (3.5-5.1); SODIUM LEVEL 145 MEQ/L (136-145); TOTAL PROTEIN 6.6 GM/DL (6.4-8.2)
== END ==
LOC: SKLAB5 08:02
DX: F03.90 Unspecified dementia, unspecified severity, without behavioral disturbance, psychotic disturbance, mood disturbance, and anxiety (principal)
CPT/HCPCS: 82140

== ENCOUNTER → 2018-06-25 | Outpatient (REF) | payer OTHER, MEDICARE ==
[~2018-06-25] MED LIST changes: +ACET650S3 PR; +APAP325T4 PO; +D3-5CAP PO; +DONETAB5 PO; -DRIS50002 PO; +DRIS50003 PO; +DULC10SU2 PR; +ENEMENE6 PR; +MEMA1TAB2 PO; +MILK12002 PO; +MUCI600T31 PO; +NAPR-49 PO; +NAPR-885 PO; -NAPR500T PO; -NAPR500T3 PO; +SERT-155 PO; +TRAZ-160 PO; -TRAZ50TA11 PO
[2018-06-25 09:02] LABS: PERCENT SATURATION 43.4 % (13.2-45.0)
== END ==
LOC: SKLAB5 08:15
PROVIDERS: ATTEND Family Medicine
DX: D64.9 Anemia, unspecified (principal); F03.90 Unspecified dementia, unspecified severity, without behavioral disturbance, psychotic disturbance, mood disturbance, and anxiety

== ENCOUNTER → 2018-07-30 | Outpatient (REF) | payer OTHER, MEDICARE ==
[~2018-07-30] MED LIST changes: +MILK120011 PO; -MILK12002 PO; -NAPR-49 PO; +NAPR-50 PO
== END ==
LOC: SKLAB5 09:21
PROVIDERS: ATTEND Family Medicine
DX: F03.90 Unspecified dementia, unspecified severity, without behavioral disturbance, psychotic disturbance, mood disturbance, and anxiety (principal)

== ENCOUNTER → 2018-08-06 | Outpatient (REF) | payer OTHER, MEDICARE | LOC: SKLAB5 08:03 | PROVIDERS: ATTEND Family Medicine | DX: E72.20 Disorder of urea cycle metabolism, unspecified (principal) ==

== ENCOUNTER → 2018-08-27 | Outpatient (REF) | payer OTHER, MEDICARE ==
[2018-08-27 10:52] LABS: ALBUMIN 3.7 GM/DL (3.2-5.2); ALT/SGPT 21 U/L (12-78); BILIRUBIN,TOTAL 0.4 MG/DL (0.2-1.0); BLOOD UREA NITROGEN 18 MG/DL (7-18); CALCIUM LEVEL 8.3 MG/DL (8.8-10.2); CARBON DIOXIDE LEVEL 26 MEQ/L (21-32); CHLORIDE LEVEL 113 MEQ/L (98-107); CREATININE FOR GFR 0.94 MG/DL (0.55-1.30); GLOMERULAR FILTRATION RATE > 60.0 (>39); GLUCOSE, FASTING 106 MG/DL (70-100); POTASSIUM SERUM 3.8 MEQ/L (3.5-5.1); SODIUM LEVEL 146 MEQ/L (136-145); TOTAL PROTEIN 6.2 GM/DL (6.4-8.2)
== END ==
LOC: SKLAB5 08:03
PROVIDERS: ATTEND Family Medicine
DX: F03.90 Unspecified dementia, unspecified severity, without behavioral disturbance, psychotic disturbance, mood disturbance, and anxiety (principal); R41.82 Altered mental status, unspecified

== ENCOUNTER → 2018-09-24 | Outpatient (REF) | payer OTHER, MEDICARE ==
[~2018-09-24] MED LIST changes: +SERT-141; +SERT-141 PO; -SERT50TA; -SERT50TA PO
[2018-09-24 09:25] LABS: BASO # 0.1 10^3/uL (0.0-0.2); BASO % 0.9 % (0.0-1.0); EOS # 0.2 10^3/uL (0.0-0.50); HEMOGLOBIN 15.9 g/dl (12.0-15.5); LYMPH # 1.5 10^3/uL (1.5-4.5); LYMPH % 25.6 % (24.0-44.0); MEAN CORPUSCULAR HEMOGLOBIN 34.3 pg (27.0-33.0); MEAN CORPUSCULAR HGB CONC 34.6 g/dl (32.0-36.5); MEAN CORPUSCULAR VOLUME 99.4 fl (80.0-96.0); MONO # 0.4 10^3/uL (0.0-0.8); MONO % 6.5 % (0.0-5.0); NEUTROPHILS # 3.6 10^3/uL (1.8-7.7); NEUTROPHILS % 62.6 % (36.0-66.0); PLATELET COUNT, AUTOMATED 135 10^3/uL (150-450); RED BLOOD COUNT 4.63 10^6/uL (4.00-5.40); WHITE BLOOD COUNT 5.7 10^3/uL (4.0-10.0)
== END ==
LOC: SKLAB5 08:09
PROVIDERS: ATTEND Family Medicine
DX: F03.90 Unspecified dementia, unspecified severity, without behavioral disturbance, psychotic disturbance, mood disturbance, and anxiety (principal); E55.9 Vitamin D deficiency, unspecified

== ENCOUNTER → 2018-10-22 | Outpatient (REF) | payer OTHER, MEDICARE ==
[~2018-10-22] MED LIST changes: -NAPR-50 PO; +NAPR-837 PO
[2018-10-22 09:04] LABS: PERCENT SATURATION 36.5 % (13.2-45.0)
== END ==
LOC: SKLAB5 08:26
PROVIDERS: ATTEND Family Medicine
DX: R41.0 Disorientation, unspecified (principal); D64.9 Anemia, unspecified; F03.90 Unspecified dementia, unspecified severity, without behavioral disturbance, psychotic disturbance, mood disturbance, and anxiety

== ENCOUNTER → 2018-10-30 | Outpatient (REF) | payer MEDICARE ==
--- NOTE | 2018-10-30 15:16 | REP ---
REASON: Knee pain. Four views were obtained portably. There is tricompartmental marginal osteophytosis. There is mild tricompartmental narrowing. There is no evidence of an acute fracture. Electronically Signed by Jesus Whyte DO 10/30/2018 03:22 P
== END ==
LOC: SKLAB5 15:00
PROVIDERS: ATTEND Family Medicine
DX: M25.561 Pain in right knee (principal); M25.761 Osteophyte, right knee

== ENCOUNTER → 2018-10-30 | Outpatient (REF) | payer MEDICARE, OTHER | LOC: M RAD 08:05 | PROVIDERS: ATTEND Family Medicine | DX: M25.561 Pain in right knee (principal) ==

== ENCOUNTER → 2018-11-03 | Outpatient (CLI) | payer MEDICARE ==
--- NOTE | 2018-11-03 16:21 | REP ---
Duplex extremity venous ultrasound: Right lower extremity. History: A pain and swelling, question DVT. Findings: The deep veins are anechoic and fully compressible from the groin to the popliteal fossa in the right lower extremity. Color flow imaging is homogeneous. Spectral Doppler interrogation demonstrates intact respiratory variation in flow and normal manual augmentation of flow. There is no evidence of deep vein thrombosis. There is a 2.7 x 1.1 x 2.2 cm Amaral's cyst in the right popliteal fossa soft tissues. Impression: Negative right lower extremity duplex venous ultrasound. No evidence of deep vein thrombosis. 2.7 cm right Amaral's cyst. Electronically Signed by Sundeep Camarena MD 11/03/2018 05:27 P
== END ==
LOC: M RAD 14:27
PROVIDERS: ATTEND Nurse Practitioner Family
DX: M71.21 Synovial cyst of popliteal space [Baker], right knee (principal)

== ENCOUNTER → 2018-11-03 | Outpatient (REF) | payer MEDICARE ==
[2018-11-03 12:16] LABS: BASO % 0.4 % (0.0-1.0); EOS % 0.3 % (0.0-3.0); HEMATOCRIT 40.6 % (36.0-47.0); HEMOGLOBIN 13.9 g/dl (12.0-15.5); LYMPH # 1.4 10^3/uL (1.5-4.5); LYMPH % 13.6 % (24.0-44.0); MEAN CORPUSCULAR HEMOGLOBIN 34.8 pg (27.0-33.0); MEAN CORPUSCULAR HGB CONC 34.2 g/dl (32.0-36.5); MEAN CORPUSCULAR VOLUME 101.5 fl (80.0-96.0); MONO # 1.3 10^3/uL (0.0-0.8); MONO % 12.7 % (0.0-5.0); NEUTROPHILS # 7.5 10^3/uL (1.8-7.7); NEUTROPHILS % 72.5 % (36.0-66.0); PLATELET COUNT, AUTOMATED 179 10^3/uL (150-450); WHITE BLOOD COUNT 10.4 10^3/uL (4.0-10.0)
[2018-11-03 12:37] LABS: ERYTHROCYTE SEDIMENTATION RATE 60 mm/hr (0-30)
== END ==
LOC: SKLAB5 11:35
PROVIDERS: ATTEND Family Medicine
DX: R22.41 Localized swelling, mass and lump, right lower limb (principal); M79.661 Pain in right lower leg

== ENCOUNTER → 2018-11-26 | Outpatient (REF) | payer MEDICARE ==
[~2018-11-26] MED LIST changes: -TRAZ-160 PO; +TRAZ-252 PO
[2018-11-26 07:51] LABS: ALBUMIN 3.3 GM/DL (3.2-5.2); BILIRUBIN,TOTAL 0.4 MG/DL (0.2-1.0); CALCIUM LEVEL 9.2 MG/DL (8.8-10.2); CREATININE FOR GFR 0.96 MG/DL (0.55-1.30); GLOMERULAR FILTRATION RATE 59.5 (>32); TOTAL PROTEIN 6.6 GM/DL (6.4-8.2)
== END ==
LOC: SKLAB5 09:13
PROVIDERS: ATTEND Family Medicine
DX: R41.0 Disorientation, unspecified (principal)

== ENCOUNTER → 2018-12-25 | Outpatient (REF) | payer MEDICARE | LOC: SKLAB5 12:13 | PROVIDERS: ATTEND Family Medicine | DX: R41.0 Disorientation, unspecified (principal) ==

== ENCOUNTER → 2019-01-21 | Outpatient (REF) | payer MEDICARE | LOC: SKLAB5 07:48 | PROVIDERS: ATTEND Family Medicine | DX: R41.0 Disorientation, unspecified (principal); F03.90 Unspecified dementia, unspecified severity, without behavioral disturbance, psychotic disturbance, mood disturbance, and anxiety ==

== ENCOUNTER → 2019-02-25 | Outpatient (REF) | payer MEDICARE ==
[~2019-02-25] MED LIST changes: -MECL-68 PO; +MECL1TAB31 PO; +MEMA10TA19 PO; -MEMA1TAB2 PO; -SERT-155 PO; +SERT50TA29 PO
[2019-02-25 09:40] LABS: ALBUMIN 3.6 GM/DL (3.2-5.2); ALT/SGPT 18 U/L (12-78); BILIRUBIN,TOTAL 0.5 MG/DL (0.2-1.0); BLOOD UREA NITROGEN 15 MG/DL (7-18); CALCIUM LEVEL 9.2 MG/DL (8.8-10.2); CARBON DIOXIDE LEVEL 26 MEQ/L (21-32); CHLORIDE LEVEL 111 MEQ/L (98-107); CREATININE FOR GFR 0.82 MG/DL (0.55-1.30); FERRITIN 115 NG/ML (8-252); GLOMERULAR FILTRATION RATE > 60.0 (>32); GLUCOSE, FASTING 89 MG/DL (70-100); IRON (FE) 77 UG/DL (50-170); POTASSIUM SERUM 3.9 MEQ/L (3.5-5.1); SODIUM LEVEL 143 MEQ/L (136-145); TOTAL PROTEIN 6.8 GM/DL (6.4-8.2)
== END ==
LOC: SKLAB5 10:30
PROVIDERS: ATTEND Family Medicine
DX: D64.9 Anemia, unspecified (principal); R41.0 Disorientation, unspecified

== ENCOUNTER → 2019-03-25 | Outpatient (REF) | payer MEDICARE | LOC: SKLAB5 08:06 | PROVIDERS: ATTEND Family Medicine | DX: E55.9 Vitamin D deficiency, unspecified (principal); R41.0 Disorientation, unspecified; Z79.899 Other long term (current) drug therapy ==

== ENCOUNTER → 2019-04-29 | Outpatient (REF) | payer MEDICARE ==
[~2019-04-29] MED LIST changes: +MECL-68 PO; -MECL1TAB31 PO; -MEMA10TA19 PO; +MEMA1TAB2 PO
== END ==
LOC: SKLAB5 07:52
PROVIDERS: ATTEND Family Medicine
DX: F03.90 Unspecified dementia, unspecified severity, without behavioral disturbance, psychotic disturbance, mood disturbance, and anxiety (principal)

== ENCOUNTER → 2019-05-27 | Outpatient (REF) | payer MEDICARE ==
[2019-05-27 09:04] LABS: ALBUMIN 3.9 GM/DL (3.2-5.2); ALT/SGPT 24 U/L (12-78); BILIRUBIN,TOTAL 0.5 MG/DL (0.2-1.0); BLOOD UREA NITROGEN 19 MG/DL (7-18); CALCIUM LEVEL 9.1 MG/DL (8.8-10.2); CARBON DIOXIDE LEVEL 28 MEQ/L (21-32); CHLORIDE LEVEL 112 MEQ/L (98-107); CREATININE FOR GFR 0.86 MG/DL (0.55-1.30); GLOMERULAR FILTRATION RATE > 60.0 (>32); GLUCOSE, FASTING 86 MG/DL (70-100); POTASSIUM SERUM 4.1 MEQ/L (3.5-5.1); SODIUM LEVEL 145 MEQ/L (136-145); TOTAL PROTEIN 6.8 GM/DL (6.4-8.2)
== END ==
LOC: SKLAB5 10:13
PROVIDERS: ATTEND Family Medicine
DX: F03.90 Unspecified dementia, unspecified severity, without behavioral disturbance, psychotic disturbance, mood disturbance, and anxiety (principal); R41.0 Disorientation, unspecified

== ENCOUNTER → 2019-06-24 | Outpatient (REF) | payer MEDICARE ==
[~2019-06-24] MED LIST changes: +MEMA10TA19 PO; -MEMA1TAB2 PO
[2019-06-24 09:27] LABS: BASO # 0.1 10^3/uL (0.0-0.2); BASO % 0.9 % (0.0-1.0); EOS # 0.2 10^3/uL (0.0-0.5); EOS % 3.2 % (0.0-3.0); HEMATOCRIT 48.5 % (36.0-47.0); LYMPH # 1.6 10^3/uL (1.5-5.0); LYMPH % 29.4 % (24.0-44.0); MEAN CORPUSCULAR HEMOGLOBIN 33.9 pg (27.0-33.0); MEAN CORPUSCULAR VOLUME 102.8 fl (80.0-96.0); MONO # 0.5 10^3/uL (0.0-0.8); MONO % 8.6 % (0.0-5.0); NEUTROPHILS # 3.2 10^3/uL (1.5-8.5); NEUTROPHILS % 57.7 % (36.0-66.0); PLATELET COUNT, AUTOMATED 149 10^3/uL (150-450); RED BLOOD COUNT 4.72 10^6/uL (4.00-5.40); WHITE BLOOD COUNT 5.6 10^3/uL (4.0-10.0)
[2019-06-24 10:02] LABS: PERCENT SATURATION 37.4 % (13.2-45.0)
== END ==
LOC: SKLAB5 07:52
PROVIDERS: ATTEND Family Medicine
DX: F03.90 Unspecified dementia, unspecified severity, without behavioral disturbance, psychotic disturbance, mood disturbance, and anxiety (principal); D64.9 Anemia, unspecified

== ENCOUNTER → 2019-07-29 | Outpatient (REF) | payer MEDICARE ==
[~2019-07-29] MED LIST changes: -MECL-68 PO; +MECL1TAB31 PO
== END ==
LOC: SKLAB5 09:07
PROVIDERS: ATTEND Family Medicine
DX: R41.82 Altered mental status, unspecified (principal)

== ENCOUNTER → 2019-08-12 | Outpatient (REF) | payer MEDICARE, OTHER | PROVIDERS: ATTEND Family Medicine | DX: R74.8 Abnormal levels of other serum enzymes (principal) ==

== ENCOUNTER → 2019-09-06 | Outpatient (REF) | payer MEDICARE, OTHER | PROVIDERS: ATTEND Family Medicine | DX: E72.29 Other disorders of urea cycle metabolism (principal) ==

== ENCOUNTER → 2019-10-19 | Outpatient (REF) | payer MEDICARE, OTHER ==
[2019-10-19 10:51] LABS: HEMATOCRIT 46.9 % (36.0-47.0); HEMOGLOBIN 16.4 g/dl (12.0-15.5); MEAN CORPUSCULAR HEMOGLOBIN 34.7 pg (27.0-33.0); MEAN CORPUSCULAR VOLUME 99.2 fl (80.0-96.0); PLATELET COUNT, AUTOMATED 174 10^3/uL (150-450); RED BLOOD COUNT 4.73 10^6/uL (4.00-5.40); WHITE BLOOD COUNT 6.5 10^3/uL (4.0-10.0)
[2019-10-19 11:13] LABS: ERYTHROCYTE SEDIMENTATION RATE 21 mm/hr (0-30)
[2019-10-19 11:16] LABS: ALBUMIN 3.7 GM/DL (3.2-5.2); ALT/SGPT 34 U/L (12-78); BILIRUBIN,TOTAL 0.5 MG/DL (0.2-1.0); BLOOD UREA NITROGEN 18 MG/DL (7-18); C REACTIVE PROTEIN QUANTITATIV 1.33 MG/DL (0.00-0.30); CARBON DIOXIDE LEVEL 24 MEQ/L (21-32); CHLORIDE LEVEL 108 MEQ/L (98-107); GLOMERULAR FILTRATION RATE > 60.0 (>32); GLUCOSE, FASTING 127 MG/DL (70-100); POTASSIUM SERUM 3.9 MEQ/L (3.5-5.1); SODIUM LEVEL 140 MEQ/L (136-145); TOTAL PROTEIN 6.9 GM/DL (6.4-8.2); URIC ACID 5.2 MG/DL (2.6-6.0)
--- NOTE | 2019-10-19 14:38 | REP ---
RIGHT KNEE, FOUR VIEWS: Four views of the right knee performed. No acute fracture or dislocation is seen. There is moderate lateral joint space narrowing with mild subchondral sclerosis. Mild superior and inferior patellar spurring. There does appear to be a small joint effusion. IMPRESSION: Degenerative changes. Small joint effusion. Electronically Signed by Miah Melendez MD 10/19/2019 03:23 P
== END ==
PROVIDERS: ATTEND Family Medicine
DX: M17.11 Unilateral primary osteoarthritis, right knee (principal); M25.561 Pain in right knee

== ENCOUNTER → 2019-11-09 | Outpatient (REF) | PROVIDERS: ATTEND Internal Medicine | DX: Z03.818 Encounter for observation for suspected exposure to other biological agents ruled out (principal) ==

== ENCOUNTER → 2019-11-09 | Outpatient (REF) | payer MEDICARE, OTHER | PROVIDERS: ATTEND Nurse Practitioner Adult Health | DX: K74.60 Unspecified cirrhosis of liver (principal) ==

== ENCOUNTER → 2020-01-07 | Outpatient (REF) | payer MEDICARE, OTHER ==
[~2020-01-07] MED LIST changes: -LACT10SO29 PO; +LACT20EL PO
[2020-01-07 13:10] LABS: HEMOGLOBIN 16.3 g/dl (12.0-15.5); MEAN CORPUSCULAR HEMOGLOBIN 35.2 pg (27.0-33.0); MEAN CORPUSCULAR HGB CONC 34.7 g/dl (32.0-36.5); MEAN CORPUSCULAR VOLUME 101.5 fl (80.0-96.0); PLATELET COUNT, AUTOMATED 149 10^3/uL (150-450); RED BLOOD COUNT 4.63 10^6/uL (4.00-5.40); WHITE BLOOD COUNT 7.5 10^3/uL (4.0-10.0)
[2020-01-07 13:12] LABS: APPEARANCE, URINE HAZY (CLEAR); BACTERIA, URINE AUTO 1+ (NEGATIVE); BILIRUBIN, URINE AUTO NEGATIVE (NEGATIVE); BLOOD, URINE BLOOD 3+ (NEGATIVE); COLOR, URINE YELLOW (YELLOW); GLUCOSE, URINE (UA) AUTO NEGATIVE (NEGATIVE); KETONE, URINE AUTO NEGATIVE (NEGATIVE); LEUKOCYTE ESTERASE, URINE AUTO 1+ (NEGATIVE); MUCUS, URINE SMALL (NEGATIVE); NITRITE, URINE AUTO POSITIVE (NEGATIVE); PROTEIN, URINE AUTO NEGATIVE (NEGATIVE); RBC, URINE AUTO 7 /HPF (0-3); SPECIFIC GRAVITY URINE AUTO 1.017 (1.002-1.035); SQUAMOUS EPITHELIAL CELL UR AU 1 /HPF (0-6); UROBILINOGEN, URINE AUTO 0.2 mg/dL (0.0-2.0); WBC, URINE AUTO 13 /HPF (0-3)
[2020-01-07 13:43] LABS: BILIRUBIN,TOTAL 0.5 MG/DL (0.2-1.0); CALCIUM LEVEL 9.2 MG/DL (8.8-10.2); CREATININE FOR GFR 0.99 MG/DL (0.55-1.30); GLOMERULAR FILTRATION RATE 57.3 (>32); POTASSIUM SERUM 4.2 MEQ/L (3.5-5.1); THYROID STIMULATING HORMONE 1.35 uIU/ML (0.358-3.740); TOTAL PROTEIN 6.6 GM/DL (6.4-8.2)
== END ==
PROVIDERS: ATTEND Family Medicine
DX: R53.83 Other fatigue (principal); R41.82 Altered mental status, unspecified; I73.9 Peripheral vascular disease, unspecified; F03.90 Unspecified dementia, unspecified severity, without behavioral disturbance, psychotic disturbance, mood disturbance, and anxiety

== ENCOUNTER → 2020-01-11 | Outpatient (REF) | payer MEDICARE, OTHER ==
[2020-01-11 10:37] LABS: HEMOGLOBIN 15.6 g/dl (12.0-15.5); MEAN CORPUSCULAR HEMOGLOBIN 34.1 pg (27.0-33.0); MEAN CORPUSCULAR HGB CONC 34.7 g/dl (32.0-36.5); MEAN CORPUSCULAR VOLUME 98.5 fl (80.0-96.0); PLATELET COUNT, AUTOMATED 176 10^3/uL (150-450); RED BLOOD COUNT 4.57 10^6/uL (4.00-5.40); WHITE BLOOD COUNT 6.6 10^3/uL (4.0-10.0)
[2020-01-11 10:59] LABS: BILIRUBIN,TOTAL 0.5 MG/DL (0.2-1.0); CALCIUM LEVEL 9.2 MG/DL (8.8-10.2); CREATININE FOR GFR 1.03 MG/DL (0.55-1.30); GLOMERULAR FILTRATION RATE 54.7 (>32); PERCENT SATURATION 59.1 % (13.2-45.0); POTASSIUM SERUM 4.2 MEQ/L (3.5-5.1); TOTAL PROTEIN 6.9 GM/DL (6.4-8.2)
== END ==
PROVIDERS: ATTEND Nurse Practitioner Adult Health
DX: E83.119 Hemochromatosis, unspecified (principal); Z79.899 Other long term (current) drug therapy

== ENCOUNTER → 2020-01-31 | Outpatient (REF) | payer MEDICARE, OTHER ==
[2020-04-15 11:09] LABS: APPEARANCE, URINE CLOUDY (CLEAR); BACTERIA, URINE AUTO 1+ (NEGATIVE); BILIRUBIN, URINE AUTO NEGATIVE (NEGATIVE); BLOOD, URINE BLOOD 1+ (NEGATIVE); CALCIUM OXALATE CRYSTALS SMALL; COLOR, URINE YELLOW (YELLOW); GLUCOSE, URINE (UA) AUTO NEGATIVE (NEGATIVE); KETONE, URINE AUTO NEGATIVE (NEGATIVE); LEUKOCYTE ESTERASE, URINE AUTO 3+ (NEGATIVE); MUCUS, URINE SMALL (NEGATIVE); NITRITE, URINE AUTO POSITIVE (NEGATIVE); PROTEIN, URINE AUTO NEGATIVE (NEGATIVE); RBC, URINE AUTO 3 /HPF (0-3); SPECIFIC GRAVITY URINE AUTO 1.017 (1.002-1.035); SQUAMOUS EPITHELIAL CELL UR AU 2 /HPF (0-6); UROBILINOGEN, URINE AUTO 0.2 mg/dL (0.0-2.0); WBC, URINE AUTO 52 /HPF (0-3)
== END ==
PROVIDERS: ATTEND Internal Medicine
DX: R41.82 Altered mental status, unspecified (principal)

== ENCOUNTER → 2020-03-14 | Outpatient (REF) | payer MEDICARE, OTHER | PROVIDERS: ATTEND Nurse Practitioner Adult Health | DX: K74.60 Unspecified cirrhosis of liver (principal) ==

== ENCOUNTER → 2020-05-04 | Outpatient (REF) | payer MEDICARE, OTHER ==
[2020-05-04 15:29] LABS: HEMATOCRIT 45.2 % (36.0-47.0); HEMOGLOBIN 15.1 g/dl (12.0-15.5); MEAN CORPUSCULAR HEMOGLOBIN 33.7 pg (27.0-33.0); MEAN CORPUSCULAR HGB CONC 33.4 g/dl (32.0-36.5); MEAN CORPUSCULAR VOLUME 100.9 fl (80.0-96.0); PLATELET COUNT, AUTOMATED 135 10^3/uL (150-450); RED BLOOD COUNT 4.48 10^6/uL (4.00-5.40); WHITE BLOOD COUNT 6.1 10^3/uL (4.0-10.0)
[2020-05-04 16:08] LABS: ALBUMIN 3.8 GM/DL (3.2-5.2); ALT/SGPT 26 U/L (12-78); BILIRUBIN,TOTAL 0.5 MG/DL (0.2-1.0); BLOOD UREA NITROGEN 23 MG/DL (7-18); CALCIUM LEVEL 9.2 MG/DL (8.8-10.2); CARBON DIOXIDE LEVEL 23 MEQ/L (21-32); CHLORIDE LEVEL 110 MEQ/L (98-107); CREATININE FOR GFR 0.78 MG/DL (0.55-1.30); GLOMERULAR FILTRATION RATE > 60.0 (>32); GLUCOSE, FASTING 77 MG/DL (70-100); POTASSIUM SERUM 4.9 MEQ/L (3.5-5.1); SODIUM LEVEL 143 MEQ/L (136-145); TOTAL PROTEIN 6.3 GM/DL (6.4-8.2)
== END ==
PROVIDERS: ATTEND Nurse Practitioner Adult Health
DX: R53.83 Other fatigue (principal)

== ENCOUNTER → 2020-05-05 | Outpatient (REF) | PROVIDERS: ATTEND Internal Medicine | DX: Z20.828 Contact with and (suspected) exposure to other viral communicable diseases (principal) ==

== ENCOUNTER → 2020-05-05 | Outpatient (REF) | payer MEDICARE, OTHER | PROVIDERS: ATTEND Nurse Practitioner Adult Health | DX: R53.83 Other fatigue (principal) ==

== ENCOUNTER → 2020-05-11 | Outpatient (REF) | payer MEDICARE, MEDICAID ==
[~2020-05-11] MED LIST changes: -QUET1TAB7 PO; +QUET25TA3 PO
== END ==
LOC: EDSTATUS 06-20 14:23
PROVIDERS: ATTEND Internal Medicine
DX: Z20.828 Contact with and (suspected) exposure to other viral communicable diseases (principal)

== ENCOUNTER → 2020-05-17 | Outpatient (REF) | payer MEDICARE, MEDICAID | PROVIDERS: ATTEND Internal Medicine | DX: Z20.828 Contact with and (suspected) exposure to other viral communicable diseases (principal) ==

== ENCOUNTER → 2020-05-26 | Outpatient (CLI) | payer MEDICARE, MEDICAID ==
[~2020-05-26] MED LIST changes: +QUET1TAB7 PO; -QUET25TA3 PO
== END ==
LOC: M RAD 09:55
PROVIDERS: ATTEND Nurse Practitioner Adult Health
DX: Z53.9 Procedure and treatment not carried out, unspecified reason (principal)

== ENCOUNTER → 2020-05-26 | Outpatient (REF) | payer MEDICARE, OTHER ==
--- NOTE | 2020-05-26 11:00 | REP ---
INDICATION: LEFT PAIN RECENT FALL. COMPARISON: None TECHNIQUE: Six views with accompanying frontal view of the chest, comparison chest 01/11/2017 a portable exam FINDINGS: The exam is limited by the patient's body habitus. Multiple views of the left ribs show no fracture or osseous lesion. The bones are demineralized. This could obscure subtle fracture. The accompanying frontal view of the chest shows mild cardiomegaly status quo., no infiltrates, effusions, or pneumothoraces are noted. IMPRESSION: Chronic changes and exam limitations as described above. There is no evidence of acute disease. <Electronically signed by Jesus Whyte > 05/26/20 1050
== END ==
PROVIDERS: ATTEND Internal Medicine
DX: R07.82 Intercostal pain (principal)

== ENCOUNTER → 2020-06-04 | Outpatient (REF) | payer MEDICARE, MEDICAID | PROVIDERS: ATTEND Internal Medicine | DX: Z20.828 Contact with and (suspected) exposure to other viral communicable diseases (principal) ==

== ENCOUNTER → 2020-06-08 | Outpatient (REF) | payer MEDICAID, MEDICARE ==
[~2020-06-08] MED LIST changes: -QUET1TAB7 PO; +QUET25TA3 PO
== END ==
PROVIDERS: ATTEND Internal Medicine
DX: Z20.828 Contact with and (suspected) exposure to other viral communicable diseases (principal)

== ENCOUNTER → 2020-06-14 | Outpatient (REF) | payer MEDICAID, MEDICARE | PROVIDERS: ATTEND Internal Medicine | DX: Z20.828 Contact with and (suspected) exposure to other viral communicable diseases (principal) ==

== ENCOUNTER → 2020-06-20 | Outpatient (REF) | payer MEDICAID, MEDICARE | PROVIDERS: ATTEND Internal Medicine | DX: Z20.828 Contact with and (suspected) exposure to other viral communicable diseases (principal) ==

== ENCOUNTER → 2020-06-26 | Outpatient (REF) | payer MEDICAID, MEDICARE | PROVIDERS: ATTEND Internal Medicine | DX: Z11.52 Encounter for screening for COVID-19 (principal) ==

== ENCOUNTER → 2020-06-30 | Outpatient (REF) | payer MEDICAID, MEDICARE | PROVIDERS: ATTEND Internal Medicine | DX: Z11.52 Encounter for screening for COVID-19 (principal) ==

== ENCOUNTER → 2020-07-05 | Outpatient (REF) | payer MEDICAID, MEDICARE | PROVIDERS: ATTEND Internal Medicine | DX: Z11.52 Encounter for screening for COVID-19 (principal) ==

== ENCOUNTER → 2020-07-10 | Outpatient (REF) | payer MEDICARE, MEDICAID ==
[2020-07-10 12:05] LABS: HEMATOCRIT 47.6 % (36.0-47.0); HEMOGLOBIN 16.4 g/dl (12.0-15.5); MEAN CORPUSCULAR HEMOGLOBIN 34.7 pg (27.0-33.0); MEAN CORPUSCULAR HGB CONC 34.5 g/dl (32.0-36.5); MEAN CORPUSCULAR VOLUME 100.6 fl (80.0-96.0); PLATELET COUNT, AUTOMATED 136 10^3/uL (150-450); RED BLOOD COUNT 4.73 10^6/uL (4.00-5.40)
[2020-07-10 13:10] LABS: ALBUMIN 3.8 GM/DL (3.2-5.2); BILIRUBIN,TOTAL 0.7 MG/DL (0.2-1.0); CALCIUM LEVEL 9.5 MG/DL (8.8-10.2); GLOMERULAR FILTRATION RATE 56.6 (>32); PERCENT SATURATION 62.9 % (13.2-45.0); POTASSIUM SERUM 3.7 MEQ/L (3.5-5.1); TOTAL PROTEIN 6.4 GM/DL (6.4-8.2)
== END ==
PROVIDERS: ATTEND Nurse Practitioner Adult Health
DX: K74.60 Unspecified cirrhosis of liver (principal); D47.2 Monoclonal gammopathy

== ENCOUNTER → 2020-07-12 | Outpatient (REF) | payer MEDICAID, MEDICARE | PROVIDERS: ATTEND Internal Medicine | DX: Z11.52 Encounter for screening for COVID-19 (principal) ==

== ENCOUNTER → 2020-07-19 | Outpatient (REF) | payer MEDICARE, MEDICAID ==
[~2020-07-19] MED LIST changes: +QUET1TAB7 PO; -QUET25TA3 PO
== END ==
PROVIDERS: ATTEND Internal Medicine
DX: Z20.822 Contact with and (suspected) exposure to COVID-19 (principal)

== ENCOUNTER → 2020-07-26 | Outpatient (REF) | payer MEDICARE, MEDICAID | PROVIDERS: ATTEND Internal Medicine | DX: Z20.822 Contact with and (suspected) exposure to COVID-19 (principal) ==

== ENCOUNTER → 2020-08-02 | Outpatient (REF) | payer MEDICARE, MEDICAID ==
[~2020-08-02] MED LIST changes: -QUET1TAB7 PO; +QUET25TA3 PO
== END ==
PROVIDERS: ATTEND Internal Medicine
DX: Z20.822 Contact with and (suspected) exposure to COVID-19 (principal)

== ENCOUNTER → 2020-08-08 | Outpatient (REF) | payer MEDICARE, MEDICAID | PROVIDERS: ATTEND Nurse Practitioner Adult Health | DX: K74.60 Unspecified cirrhosis of liver (principal); D47.2 Monoclonal gammopathy ==

== ENCOUNTER → 2020-08-09 | Outpatient (REF) | payer MEDICARE, MEDICAID | PROVIDERS: ATTEND Internal Medicine | DX: Z20.822 Contact with and (suspected) exposure to COVID-19 (principal) ==

== ENCOUNTER → 2020-08-16 | Outpatient (REF) | payer MEDICARE, MEDICAID | PROVIDERS: ATTEND Internal Medicine | DX: Z20.822 Contact with and (suspected) exposure to COVID-19 (principal) ==

== ENCOUNTER → 2020-08-17 | Outpatient (REF) | payer MEDICARE, MEDICAID | PROVIDERS: ATTEND Internal Medicine | DX: R53.1 Weakness (principal) ==

== ENCOUNTER → 2020-08-18 | Outpatient (REF) | payer MEDICARE, MEDICAID | PROVIDERS: ATTEND Internal Medicine | DX: E72.20 Disorder of urea cycle metabolism, unspecified (principal) ==

== ENCOUNTER → 2020-08-21 | Outpatient (REF) | payer MEDICARE, MEDICAID ==
[2020-08-21 09:20] LABS: HEMATOCRIT 45.5 % (36.0-47.0); HEMOGLOBIN 16.1 g/dl (12.0-15.5); MEAN CORPUSCULAR HEMOGLOBIN 34.8 pg (27.0-33.0); MEAN CORPUSCULAR HGB CONC 35.4 g/dl (32.0-36.5); MEAN CORPUSCULAR VOLUME 98.5 fl (80.0-96.0); PLATELET COUNT, AUTOMATED 127 10^3/uL (150-450); RED BLOOD COUNT 4.62 10^6/uL (4.00-5.40); WHITE BLOOD COUNT 5.6 10^3/uL (4.0-10.0)
[2020-08-21 09:52] LABS: BLOOD UREA NITROGEN 22 MG/DL (7-18); CARBON DIOXIDE LEVEL 23 MEQ/L (21-32); CHLORIDE LEVEL 112 MEQ/L (98-107); CREATININE FOR GFR 0.89 MG/DL (0.55-1.30); GLOMERULAR FILTRATION RATE > 60.0 (>32); GLUCOSE, FASTING 116 MG/DL (70-100); POTASSIUM SERUM 3.8 MEQ/L (3.5-5.1); SODIUM LEVEL 145 MEQ/L (136-145)
== END ==
PROVIDERS: ATTEND Internal Medicine
DX: Z79.899 Other long term (current) drug therapy (principal); W19.XXXA Unspecified fall, initial encounter

== ENCOUNTER → 2020-08-23 | Outpatient (REF) | payer MEDICARE, MEDICAID | PROVIDERS: ATTEND Internal Medicine | DX: Z20.822 Contact with and (suspected) exposure to COVID-19 (principal) ==

== ENCOUNTER → 2020-08-30 | Outpatient (REF) | payer MEDICARE, MEDICAID | PROVIDERS: ATTEND Internal Medicine | DX: Z11.52 Encounter for screening for COVID-19 (principal) ==

== ENCOUNTER → 2020-09-23 | Outpatient (REF) | payer MEDICARE, MEDICAID ==
[2020-09-23 03:15] LABS: INFLUENZA A AMPLIFICATION NEGATIVE (NEGATIVE); INFLUENZA B AMPLIFICATION NEGATIVE (NEGATIVE)
== END ==
PROVIDERS: ATTEND Internal Medicine
DX: Z11.59 Encounter for screening for other viral diseases (principal)

== ENCOUNTER → 2020-10-03 | Outpatient (REF) | payer MEDICARE, MEDICAID | PROVIDERS: ATTEND Internal Medicine | DX: Z20.822 Contact with and (suspected) exposure to COVID-19 (principal) ==